=== PATIENT | male | born 1940 | race Caucasian/White ===

== ENCOUNTER 2021-10-16 20:12 | Inpatient (IN) | payer MEDICARE ==
[2021-10-16] MEDS ORDERED: Sodium Chloride 0.9% 10 ML Syringe FLUSH PRN (20:41)
[2021-10-16] MEDS ORDERED: Furosemide 20 MG/2 ML VIAL IVPUSH ONE (21:10)
[2021-10-16 21:17] LABS: CORONAVIRUS COVID-19 NAA NEGATIVE (NEGATIVE)
[2021-10-16] MEDS ORDERED: Lidocaine 2% Jelly 10 ML Urojet MUCMEM ONE (21:47)
[2021-10-16] MEDS ORDERED: Metolazone 2.5 MG Tab PO ONE (21:48)
--- NOTE | 2021-10-16 22:25 | CRLCR ---
For Patients: As a result of the Century Cures Act, medical imaging exams and procedure reports are released immediately into your electronic medical record. You may view this report before your referring provider. If you have questions, please contact your health care provider. HISTORY: Shortness of breath COMPARISON: Chest two views from 07/31/2021 FINDINGS: A portable erect AP view of the chest was obtained at 21 29 hours. There is new moderate consolidation of the lateral right lower lung associated with a new mild right pleural effusion. The findings suggest new right lower lobe pneumonia. There is new mild patchy density in the left lung base which is probably atelectasis, although additional pneumonia cannot be excluded. There is a new tiny left pleural effusion. The rest of the chest remains clear. Shallow inspiration results in crowding of lung markings and the heart now appears to be mildly enlarged, partially the result of shallow inspiration. Again seen are sternal wires from median sternotomy. Again seen is a left-sided defibrillator with leads entering the left subclavian vein and terminating in the right atrium, right ventricle, and coronary sinus. The mediastinum otherwise remains normal in appearance. The osseous structures are otherwise normal in appearance for the patient`s age. IMPRESSION: New moderate consolidation of the right lateral lower lung with new mild right pleural effusion, worrisome for new right lower lobe pneumonia. Mild patchy infiltrates in the left lateral lower lung along with tiny left pleural effusion, probably atelectasis, but cannot exclude additional pneumonia. New mild cardiomegaly, at least partially the results of shallow inspiration. Dictated by Edouard Sun MD @ 10/16/2021 10:23:13 PM (Electronically Signed)
[2021-10-16] MEDS: Spironolactone 25 MG Tab PO SCH (22:37)
[2021-10-16] MEDS: glipiZIDE 5 MG Tab.ER PO SCH ×2 (22:37→22:39)
[2021-10-16] MEDS: Hydrochlorothiazide 25 MG Tab PO SCH (22:37)
[2021-10-17] MEDS: glipiZIDE 5 MG Tab.ER PO SCH ×2 (07:34→16:18)
[2021-10-17] MEDS: Pantoprazole 40 MG Tab.CR PO SCH ×2 (07:45→16:16)
[2021-10-17] MEDS: Hydrochlorothiazide 25 MG Tab PO SCH (08:26)
[2021-10-17] MEDS: Aspirin 81 MG Tab.EC PO SCH (08:26)
[2021-10-17] MEDS: Spironolactone 25 MG Tab PO SCH (08:27)
[2021-10-17] MEDS: traMADol 50 MG Tab PO PRN ×2 (10:35→16:27)
[2021-10-17] MEDS: Atenolol 25 MG Tab PO SCH (10:35)
[2021-10-17] MEDS: Furosemide 20 MG/2 ML VIAL IVPUSH SCH ×3 (13:19→20:44)
--- NOTE | 2021-10-17 13:20 | US ---
VL Duplex Lwr Ext Art Ltd Lt CLINICAL HISTORY: Left leg pain and swelling FINDINGS: Real-time Doppler images were obtained to left lower extremity from the groin to the foot Monophasic waveforms are seen from the common femoral artery downward through the superficial femoral artery popliteal artery and the anterior and posterior tibial arteries. Monophasic reduced flow is seen in the dorsal pedal artery. 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
--- NOTE | 2021-10-17 14:21 | PCM.HP.2 ---
H&P History of Present Illness - General Date of Service: 10/17/21 Admit Problem/Dx: Admission Diagnosis/Problem Admission Diagnosis/Problem CHF, Congestive heart failure Source of Information: Patient, Family History Limitations: Reports: No Limitations - History of Present Illness Initial Comments - Free Text/Narative: He is having fluid retention gained about 40 pounds in 3 months. Also has shortness of breath and orthopnea. He has a pacemaker and recent replacement with a third wire as he is also in and out of AF Duration of Symptoms: Reports: Chronic Worsens with: Reports: Movement Associated Symptoms: Reports: Shortness of Breath, Weakness Left Ankle Pain Score (Numeric/FACES): 8 - Related Data Allergies/Adverse Reactions: Allergies Allergy/AdvReac Type Severity Reaction Status Date / Time Iodinated Contrast Media Allergy Nausea Verified 10/16/21 21:01 [Iodinated Contrast Media - IV Dye] Home Medications: Home Meds Aspirin 325 mg PO DAILY 07/02/16 [History] amLODIPine [Norvasc] 5 mg PO DAILY 07/02/16 [History] atenoloL [Atenolol] 25 mg PO DAILY 07/02/16 [History] glipiZIDE [Glucotrol XL] 10 mg PO BID 07/02/16 [History] Lactobacillus Rhamnosus GG [Culturelle] 2 cap PO BID cap 07/07/16 [Rx] Furosemide [Lasix] 40 mg PO BID 10/16/21 [History] Pantoprazole Sodium [Protonix] 40 mg PO BID 10/16/21 [History] Spironolact/Hydrochlorothiazid [Spironolactone-Hctz 25-25 Tab] 1 tab PO DAILY 10/16/21 [History] Past Medical History HEENT History: Reports: Hard of Hearing, Impaired Vision Cardiovascular History: Reports: Heart Failure, Heart Murmur, Hypertension, SC Respiratory History: Reports: Pneumonia, Recurrent Gastrointestinal History: Reports: Chronic Constipation Musculoskeletal History: Reports: Amputation Endocrine/Metabolic History: Reports: Diabetes, Type II - Infectious Disease History Infectious Disease History: Reports: Chicken Pox, Hepatitis B, Measles, Mumps - Past Surgical History Head Surgeries/Procedures: Reports: None HEENT Surgical History: Reports: Cataract Surgery Cardiovascular Surgical History: Reports: Coronary Artery Bypass, Pacer, Other (See Below) Other Cardiovascular Surgeries/Procedures: defibrilator Respiratory Surgical History: Reports: None GI Surgical History: Reports: None Endocrine Surgical History: Reports: None Neurological Surgical History: Reports: Other (See Below) Other Neurological Surgeries/Procedures: lumber 4-5 "smashed" 1987 Musculoskeletal Surgical History: Reports: Amputation Other Musculoskeletal Surgeries/Procedures:: left big toe Social & Family History - Family History HEENT: Reports: Cataract, Impaired Vision Cardiac: Reports: Hypertension, SC Respiratory: Reports: None GI: Reports: None Musculoskeletal: Reports: Arthritis Neurological: Reports: CVA Endocrine/Metabolic: Reports: Diabetes, Type I, Diabetes, type II Oncologic: Reports: Lung - Tobacco Use Tobacco Use Status *Q: Former Tobacco User Years of Tobacco use: 50 Packs/Tins Daily: 1 Used Tobacco, but Quit: Yes Month/Year Tobacco Last Used: 2008 - Caffeine Use Caffeine Use: Reports: Coffee, Soda, Tea - Recreational Drug Use Recreational Drug Use: No H&P Review of Systems - Review of Systems: Review Of Systems: See Below General: Reports: Weakness HEENT: Reports: No Symptoms Pulmonary: Reports: Shortness of Breath, Cough Cardiovascular: Reports: Palpitations, Dyspnea on Exertion, Orthopnea Gastrointestinal: Reports: Constipation Genitourinary: Reports: No Symptoms Musculoskeletal: Reports: Leg Pain Skin: Reports: Other (Pain left heel) Neurological: Reports: Difficulty Walking, Weakness Exam - Exam Exam: See Below - Vital Signs Vital Signs: Last Vital Signs Temp 97.7 F 10/17/21 11:00 Pulse 104 H 10/17/21 11:00 Resp 18 10/17/21 11:00 BP 115/72 10/17/21 11:00 Pulse Ox 100 10/17/21 11:00 Weight: 198 lb 3.129 oz - Exam General: Alert, Oriented, Cooperative, Moderate Distress HEENT: PERRLA, EACs Clear, Hearing Intact Neck: Supple Lungs: Decreased Breath Sounds, Rales Cardiovascular: Regular Rate GI/Abdominal Exam: Distended, Tender Extremities: Other (BKA right red skin left leg without a papable pulse.) Peripheral Pulses: 1+: Radial (L), Radial (R), Femoral (L), Femoral (R) Skin: Warm Neurological: Cranial Nerves Intact Neuro Extensive - Mental Status: Alert, Oriented x3 DTR: 1+: Bicep (L), Bicep (R) Psychiatric: Alert, Normal Affect - Patient Data Lab Results Last 24 hrs: Laboratory Results - last 24 hr 10/16/21 10/16/21 10/16/21 Range/Units 20:36 20:41 21:05 WBC 5.5 (4.5-11.0) K/uL RBC 5.66 (4.30-5.90) M/uL Hgb 14.9 (12.0-15.0) g/dL Hct 47.2 (40.0-54.0) % MCV 83 (80-98) fL MCH 26 L (27-31) pg MCHC 32 (32-36) % Plt Count 134 L (150-400) K/uL Neut % (Auto) 78.8 H (36-66) % Lymph % (Auto) 10.5 L (24-44) % Harris % (Auto) 10.1 H (2-6) % Eos % (Auto) 0.4 L (2-4) % Baso % (Auto) 0.2 (0-1) % Sodium (140-148) mmol/L Potassium (3.6-5.2) mmol/L Chloride (100-108) mmol/L Carbon Dioxide (21-32) mmol/L Anion Gap (5.0-14.0) mmol/L BUN (7-18) mg/dL Creatinine (0.8-1.3) mg/dL Est Cr Clr Drug Dosing mL/min Estimated GFR (MDRD) (>60) Glucose (74-106) mg/dL POC Glucose (74-106) mg/dL Calcium (8.5-10.1) mg/dL Total Bilirubin (0.2-1.0) mg/dL AST (15-37) U/L ALT (12-78) U/L Alkaline Phosphatase (46-116) U/L NT-Pro-B Natriuret Pep (5-450) pg/mL Total Protein (6.4-8.2) g/dL Albumin (3.4-5.0) g/dL Globulin (2.3-3.5) g/dL Albumin/Globulin Ratio (1.2-2.2) Urine Color Yellow (YELLOW) Urine Appearance Clear (CLEAR) Urine pH 5.0 (5.0-8.0) Ur Specific [place] 1.020 (1.008-1.030) Urine Protein Negative (NEGATIVE) mg/dL Urine Glucose (UA) Negative (NEGATIVE) mg/dL Urine Ketones Negative (NEGATIVE) mg/dL Urine Occult Blood Trace-lysed H (NEGATIVE) Urine Nitrite Negative (NEGATIVE) Urine Bilirubin Negative (NEGATIVE) Urine Urobilinogen 0.2 (0.2-1.0) EU/dL Ur Leukocyte Esterase Negative (NEGATIVE) Urine RBC 0-5 (0-5) Urine WBC 0-5 (0-5) Ur Epithelial Cells Rare Amorphous Sediment Not seen Urine Bacteria Few Urine Mucus Few Urine Other Influenza Type A RNA Negative (NEGATIVE) RSV RNA (INAAT) Negative (NEGATIVE) Influenza Type B RNA Negative (NEGATIVE) SARS-CoV-2 RNA (DIAMOND) Negative (NEGATIVE) 10/16/21 10/17/21 10/17/21 Range/Units 21:05 04:09 13:47 WBC (4.5-11.0) K/uL RBC (4.30-5.90) M/uL Hgb (12.0-15.0) g/dL Hct (40.0-54.0) % MCV (80-98) fL MCH (27-31) pg MCHC (32-36) % Plt Count (150-400) K/uL Neut % (Auto) (36-66) % Lymph % (Auto) (24-44) % Harris % (Auto) (2-6) % Eos % (Auto) (2-4) % Baso % (Auto) (0-1) % Sodium 143 145 (140-148) mmol/L Potassium 4.1 3.8 (3.6-5.2) mmol/L Chloride 107 107 (100-108) mmol/L Carbon Dioxide 23 27 (21-32) mmol/L Anion Gap 12.7 10.8 (5.0-14.0) mmol/L BUN 18 17 (7-18) mg/dL Creatinine 1.4 H 1.4 H (0.8-1.3) mg/dL Est Cr Clr Drug Dosing 43.45 43.45 mL/min Estimated GFR (MDRD) 49 L 49 L (>60) Glucose 136 H 110 H (74-106) mg/dL POC Glucose 97 (74-106) mg/dL Calcium 8.9 8.7 (8.5-10.1) mg/dL Total Bilirubin 1.1 H D (0.2-1.0) mg/dL AST 24 (15-37) U/L ALT 21 (12-78) U/L Alkaline Phosphatase 85 (46-116) U/L NT-Pro-B Natriuret Pep 06313 H (5-450) pg/mL Total Protein 6.4 (6.4-8.2) g/dL Albumin 3.4 (3.4-5.0) g/dL Globulin 3.0 (2.3-3.5) g/dL Albumin/Globulin Ratio 1.1 L (1.2-2.2) Urine Color (YELLOW) Urine Appearance (CLEAR) Urine pH (5.0-8.0) Ur Specific [place] (1.008-1.030) Urine Protein (NEGATIVE) mg/dL Urine Glucose (UA) (NEGATIVE) mg/dL Urine Ketones (NEGATIVE) mg/dL Urine Occult Blood (NEGATIVE) Urine Nitrite (NEGATIVE) Urine Bilirubin (NEGATIVE) Urine Urobilinogen (0.2-1.0) EU/dL Ur Leukocyte Esterase (NEGATIVE) Urine RBC (0-5) Urine WBC (0-5) Ur Epithelial Cells Amorphous Sediment Urine Bacteria Urine Mucus Urine Other Influenza Type A RNA (NEGATIVE) RSV RNA (INAAT) (NEGATIVE) Influenza Type B RNA (NEGATIVE) SARS-CoV-2 RNA (DIAMOND) (NEGATIVE) Result Diagrams: 10/16/21 21:05 10/17/21 04:09 Sepsis Event Note - Evaluation Sepsis Screening Result: No Definite Risk - Focused Exam Vital Signs: Vital Signs Temp Pulse Pulse Resp BP BP Pulse Ox 10/17/21 11:00 97.7 F 104 H 18 115/72 100 10/17/21 10:35 106 H 109/65 10/17/21 07:34 96.9 F 98 18 119/65 97 10/17/21 03:00 93 18 104/77 98 Problem List Initiated/Reviewed/Updated: Yes Orders Last 24hrs: Active Orders 24 hr Category Date Time Status Patient Status [ADT] Routine ADT 10/16/21 20:21 Active Communication Order [RC] ASDIRECTED Care 10/16/21 23:49 Active Pena Catheter Insertion [Insert Urinary Catheter] [OM. Care 10/16/21 21:15 Ordered PC] Q24H POC Glucose [Blood Glucose Check, Bedside] [RC] Care 10/17/21 10:20 Active WITHMEALSANDBED Telemetry Monitoring [Cardiac Monitoring] [RC] .As Care 10/16/21 22:38 Active Directed Urinary Catheter Assessment [RC] ASDIRECTED Care 10/16/21 21:15 Active Consistent Carbohydrate Diet [DIET] Diet 10/17/21 Breakfast Active CULTURE RESPIRATORY + SMEAR [RM] Routine Lab 10/16/21 23:49 Ordered GLUCOSE POC LAB TO COLLECT JPM [POC] QIDACANDBED Lab 10/17/21 16:30 Ordered GLUCOSE POC LAB TO COLLECT JPM [POC] QIDACANDBED Lab 10/17/21 21:00 Ordered GLUCOSE POC LAB TO COLLECT JPM [POC] QIDACANDBED Lab 10/18/21 07:30 Ordered GLUCOSE POC LAB TO COLLECT JPM [POC] QIDACANDBED Lab 10/18/21 11:30 Ordered GLUCOSE POC LAB TO COLLECT JPM [POC] QIDACANDBED Lab 10/18/21 16:30 Ordered GLUCOSE POC LAB TO COLLECT JPM [POC] QIDACANDBED Lab 10/18/21 21:00 Ordered GLUCOSE POC LAB TO COLLECT JPM [POC] QIDACANDBED Lab 10/19/21 07:30 Ordered GLUCOSE POC LAB TO COLLECT JPM [POC] QIDACANDBED Lab 10/19/21 11:30 Ordered GLUCOSE POC LAB TO COLLECT JPM [POC] QIDACANDBED Lab 10/19/21 16:30 Ordered GLUCOSE POC LAB TO COLLECT JPM [POC] QIDACANDBED Lab 10/19/21 21:00 Ordered GLUCOSE POC LAB TO COLLECT JPM [POC] QIDACANDBED Lab 10/20/21 07:30 Ordered GLUCOSE POC LAB TO COLLECT JPM [POC] QIDACANDBED Lab 10/20/21 11:30 Ordered GLUCOSE POC LAB TO COLLECT JPM [POC] QIDACANDBED Lab 10/20/21 16:30 Ordered GLUCOSE POC LAB TO COLLECT JPM [POC] QIDACANDBED Lab 10/20/21 21:00 Ordered GLUCOSE POC LAB TO COLLECT JPM [POC] QIDACANDBED Lab 10/21/21 07:30 Ordered GLUCOSE POC LAB TO COLLECT JPM [POC] QIDACANDBED Lab 10/21/21 11:30 Ordered Aspirin [Halfprin] Med 10/17/21 09:00 Active 81 mg PO DAILY Furosemide [Lasix] Med 10/17/21 12:00 Active 20 mg IVPUSH Q6H Pantoprazole [ProTONIX] Med 10/17/21 07:30 Active 40 mg PO BIDAC Sodium Chloride 0.9% [Saline Flush] Med 10/16/21 20:41 Active 10 ml FLUSH ASDIRECTED PRN Spironolactone [Aldactone] Med 10/16/21 22:15 Active 25 mg PO DAILY atenoloL [Tenormin] Med 10/17/21 10:30 Active 25 mg PO DAILY diphenhydrAMINE [Benadryl] Med 10/17/21 20:00 Once 25 mg IVPUSH ONETIME ONE diphenhydrAMINE [Benadryl] Med 10/18/21 08:00 Once 25 mg IVPUSH ONETIME ONE glipiZIDE [Glucotrol XL] Med 10/16/21 22:00 Active 10 mg PO BIDMEALS hydroCHLOROthiazide Med 10/16/21 22:15 Active 25 mg PO DAILY methylPREDNISolone Sod Succ [Solu-MEDROL] Med 10/17/21 20:00 Once 80 mg IVPUSH ONETIME ONE methylPREDNISolone Sod Succ [Solu-MEDROL] Med 10/18/21 08:00 Once 80 mg IVPUSH ONETIME ONE traMADol [Ultram] Med 10/17/21 10:21 Active 50 mg PO Q6H PRN Saline Lock Insert [OM.PC] Routine Oth 10/16/21 20:41 Ordered EKG 12 Lead [EK] Routine Ther 10/16/21 20:41 Ordered Medication Orders Aspirin (Aspirin 81 Mg Tab.Ec) 81 mg PO DAILY [facility] Last Admin: 10/17/21 08:26 Dose: 81 mg Documented by: LIANG Atenolol (Atenolol 25 Mg Tab) 25 mg PO DAILY [facility] Last Admin: 10/17/21 10:35 Dose: 25 mg Documented by: LIANG Diphenhydramine HCl (Diphenhydramine 50 Mg/Ml Sdv) 25 mg IVPUSH ONETIME ONE Stop: 10/17/21 20:01 Diphenhydramine HCl (Diphenhydramine 50 Mg/Ml Sdv) 25 mg IVPUSH ONETIME ONE Stop: 10/18/21 08:01 Furosemide (Furosemide 20 Mg/2 Ml Vial) 20 mg IVPUSH Q6H [facility] Last Admin: 10/17/21 13:19 Dose: 20 mg Documented by: LIANG Glipizide (Glipizide 5 Mg Tab.Er) 10 mg PO BIDMEALS [facility] Last Admin: 10/17/21 07:34 Dose: 10 mg Documented by: Admin: 10/16/21 22:39 Dose: Not Given Documented by: TRACIE Hydrochlorothiazide (Hydrochlorothiazide 25 Mg Tab) 25 mg PO DAILY [facility] Last Admin: 10/17/21 08:26 Dose: 25 mg Documented by: Admin: 10/16/21 22:37 Dose: 25 mg Documented by: TRACIE Methylprednisolone Sodium Succinate (Methylprednisolone Sodium Succinate 40 Mg/1 Ml Sdv) 80 mg IVPUSH ONETIME ONE Stop: 10/17/21 20:01 Methylprednisolone Sodium Succinate (Methylprednisolone Sodium Succinate 40 Mg/1 Ml Sdv) 80 mg IVPUSH ONETIME ONE Stop: 10/18/21 08:01 Pantoprazole Sodium (Pantoprazole 40 Mg Tab.Cr) 40 mg PO BIDAC [facility] Last Admin: 10/17/21 07:45 Dose: 40 mg Documented by: LIANG Sodium Chloride (Sodium Chloride 0.9% 10 Ml Syringe) 10 ml FLUSH ASDIRECTED PRN PRN Reason: Keep Vein Open Spironolactone (Spironolactone 25 Mg Tab) 25 mg PO DAILY [facility] Last Admin: 10/17/21 08:27 Dose: 25 mg Documented by: Admin: 10/16/21 22:37 Dose: 25 mg Documented by: TRACIE Tramadol HCl (Tramadol 50 Mg Tab) 50 mg PO Q6H PRN PRN Reason: Pain Last Admin: 10/17/21 10:35 Dose: 50 mg Documented by: LIANG Assessment/Plan Comment:: Assessment/Plan: #1. CHF with fluid retention. Have started of IV Lasix and Zaroxolyn and HCTZ and Aldactazide. Will have the pacemaker checked in the morning. Will schedule a echocardiogram when possible. #2. DMII. Will adjust and treat blood sugars #3. Arthrosclerosis arteries diffuse. Will check arterial flow in the left leg. #4. ASHD: Chronic #5. BKA right leg.] #6. History of HTN: #7. History of HLD - Mortality Measure Prognosis:: Poor
--- NOTE | 2021-10-17 14:38 | PCM.PN ---
- General Info Date of Service: 10/17/21 Functional Status: Reports: Pain Controlled - Review of Systems General: Reports: Weakness Pulmonary: Reports: Shortness of Breath Cardiovascular: Reports: No Symptoms Gastrointestinal: Reports: Constipation Genitourinary: Reports: No Symptoms Skin: Reports: Other (pain left heel) Psychiatric: Reports: No Symptoms - Patient Data Vitals - Most Recent: Last Vital Signs Temp 97.7 F 10/17/21 11:00 Pulse 104 H 10/17/21 11:00 Resp 18 10/17/21 11:00 BP 115/72 10/17/21 11:00 Pulse Ox 100 10/17/21 11:00 Weight - Most Recent: 198 lb 3.129 oz I&O - Last 24 Hours: Intake & Output 10/16/21 10/17/21 10/17/21 22:59 06:59 14:59 Intake Total 540 Output Total 1550 575 Balance -1550 -35 Lab Results Last 24 Hours: Laboratory Results - last 24 hr 10/16/21 10/16/21 10/16/21 Range/Units 20:36 20:41 21:05 WBC 5.5 (4.5-11.0) K/uL RBC 5.66 (4.30-5.90) M/uL Hgb 14.9 (12.0-15.0) g/dL Hct 47.2 (40.0-54.0) % MCV 83 (80-98) fL MCH 26 L (27-31) pg MCHC 32 (32-36) % Plt Count 134 L (150-400) K/uL Neut % (Auto) 78.8 H (36-66) % Lymph % (Auto) 10.5 L (24-44) % [place] % (Auto) 10.1 H (2-6) % Eos % (Auto) 0.4 L (2-4) % Baso % (Auto) 0.2 (0-1) % Sodium (140-148) mmol/L Potassium (3.6-5.2) mmol/L Chloride (100-108) mmol/L Carbon Dioxide (21-32) mmol/L Anion Gap (5.0-14.0) mmol/L BUN (7-18) mg/dL Creatinine (0.8-1.3) mg/dL Est Cr Clr Drug Dosing mL/min Estimated GFR (MDRD) (>60) Glucose (74-106) mg/dL POC Glucose (74-106) mg/dL Calcium (8.5-10.1) mg/dL Total Bilirubin (0.2-1.0) mg/dL AST (15-37) U/L ALT (12-78) U/L Alkaline Phosphatase (46-116) U/L NT-Pro-B Natriuret Pep (5-450) pg/mL Total Protein (6.4-8.2) g/dL Albumin (3.4-5.0) g/dL Globulin (2.3-3.5) g/dL Albumin/Globulin Ratio (1.2-2.2) Urine Color Yellow (YELLOW) Urine Appearance Clear (CLEAR) Urine pH 5.0 (5.0-8.0) Ur Specific [place] 1.020 (1.008-1.030) Urine Protein Negative (NEGATIVE) mg/dL Urine Glucose (UA) Negative (NEGATIVE) mg/dL Urine Ketones Negative (NEGATIVE) mg/dL Urine Occult Blood Trace-lysed H (NEGATIVE) Urine Nitrite Negative (NEGATIVE) Urine Bilirubin Negative (NEGATIVE) Urine Urobilinogen 0.2 (0.2-1.0) EU/dL Ur Leukocyte Esterase Negative (NEGATIVE) Urine RBC 0-5 (0-5) Urine WBC 0-5 (0-5) Ur Epithelial Cells Rare Amorphous Sediment Not seen Urine Bacteria Few Urine Mucus Few Urine Other Influenza Type A RNA Negative (NEGATIVE) RSV RNA (INAAT) Negative (NEGATIVE) Influenza Type B RNA Negative (NEGATIVE) SARS-CoV-2 RNA (DIAMOND) Negative (NEGATIVE) 10/16/21 10/17/21 10/17/21 Range/Units 21:05 04:09 13:47 WBC (4.5-11.0) K/uL RBC (4.30-5.90) M/uL Hgb (12.0-15.0) g/dL Hct (40.0-54.0) % MCV (80-98) fL MCH (27-31) pg MCHC (32-36) % Plt Count (150-400) K/uL Neut % (Auto) (36-66) % Lymph % (Auto) (24-44) % [place] % (Auto) (2-6) % Eos % (Auto) (2-4) % Baso % (Auto) (0-1) % Sodium 143 145 (140-148) mmol/L Potassium 4.1 3.8 (3.6-5.2) mmol/L Chloride 107 107 (100-108) mmol/L Carbon Dioxide 23 27 (21-32) mmol/L Anion Gap 12.7 10.8 (5.0-14.0) mmol/L BUN 18 17 (7-18) mg/dL Creatinine 1.4 H 1.4 H (0.8-1.3) mg/dL Est Cr Clr Drug Dosing 43.45 43.45 mL/min Estimated GFR (MDRD) 49 L 49 L (>60) Glucose 136 H 110 H (74-106) mg/dL POC Glucose 97 (74-106) mg/dL Calcium 8.9 8.7 (8.5-10.1) mg/dL Total Bilirubin 1.1 H D (0.2-1.0) mg/dL AST 24 (15-37) U/L ALT 21 (12-78) U/L Alkaline Phosphatase 85 (46-116) U/L NT-Pro-B Natriuret Pep 33715 H (5-450) pg/mL Total Protein 6.4 (6.4-8.2) g/dL Albumin 3.4 (3.4-5.0) g/dL Globulin 3.0 (2.3-3.5) g/dL Albumin/Globulin Ratio 1.1 L (1.2-2.2) Urine Color (YELLOW) Urine Appearance (CLEAR) Urine pH (5.0-8.0) Ur Specific [place] (1.008-1.030) Urine Protein (NEGATIVE) mg/dL Urine Glucose (UA) (NEGATIVE) mg/dL Urine Ketones (NEGATIVE) mg/dL Urine Occult Blood (NEGATIVE) Urine Nitrite (NEGATIVE) Urine Bilirubin (NEGATIVE) Urine Urobilinogen (0.2-1.0) EU/dL Ur Leukocyte Esterase (NEGATIVE) Urine RBC (0-5) Urine WBC (0-5) Ur Epithelial Cells Amorphous Sediment Urine Bacteria Urine Mucus Urine Other Influenza Type A RNA (NEGATIVE) RSV RNA (INAAT) (NEGATIVE) Influenza Type B RNA (NEGATIVE) SARS-CoV-2 RNA (DIAMOND) (NEGATIVE) Med Orders - Current: Current Medications Aspirin (Aspirin 81 Mg Tab.Ec) 81 mg PO DAILY [facility] Last Admin: 10/17/21 08:26 Dose: 81 mg Documented by: Atenolol (Atenolol 25 Mg Tab) 25 mg PO DAILY [facility] Last Admin: 10/17/21 10:35 Dose: 25 mg Documented by: Diphenhydramine HCl (Diphenhydramine 50 Mg/Ml Sdv) 25 mg IVPUSH ONETIME ONE Stop: 10/17/21 20:01 Diphenhydramine HCl (Diphenhydramine 50 Mg/Ml Sdv) 25 mg IVPUSH ONETIME ONE Stop: 10/18/21 08:01 Furosemide (Furosemide 20 Mg/2 Ml Vial) 20 mg IVPUSH Q6H [facility] Last Admin: 10/17/21 13:19 Dose: 20 mg Documented by: Glipizide (Glipizide 5 Mg Tab.Er) 10 mg PO BIDMEALS [facility] Last Admin: 10/17/21 07:34 Dose: 10 mg Documented by: Hydrochlorothiazide (Hydrochlorothiazide 25 Mg Tab) 25 mg PO DAILY [facility] Last Admin: 10/17/21 08:26 Dose: 25 mg Documented by: Methylprednisolone Sodium Succinate (Methylprednisolone Sodium Succinate 40 Mg/1 Ml Sdv) 80 mg IVPUSH ONETIME ONE Stop: 10/17/21 20:01 Methylprednisolone Sodium Succinate (Methylprednisolone Sodium Succinate 40 Mg/1 Ml Sdv) 80 mg IVPUSH ONETIME ONE Stop: 10/18/21 08:01 Pantoprazole Sodium (Pantoprazole 40 Mg Tab.Cr) 40 mg PO BIDAC [facility] Last Admin: 10/17/21 07:45 Dose: 40 mg Documented by: Sodium Chloride (Sodium Chloride 0.9% 10 Ml Syringe) 10 ml FLUSH ASDIRECTED PRN PRN Reason: Keep Vein Open Spironolactone (Spironolactone 25 Mg Tab) 25 mg PO DAILY [facility] Last Admin: 10/17/21 08:27 Dose: 25 mg Documented by: Tramadol HCl (Tramadol 50 Mg Tab) 50 mg PO Q6H PRN PRN Reason: Pain Last Admin: 10/17/21 10:35 Dose: 50 mg Documented by: Discontinued Medications Furosemide (Furosemide 20 Mg/2 Ml Vial) 20 mg IVPUSH ONETIME ONE Stop: 10/16/21 21:11 Last Admin: 12/23/21 22:01 Dose: 20 mg Documented by: Lidocaine HCl (Lidocaine 2% Jelly 10 Ml Urojet) 10 ml MUCMEM ONETIME ONE Stop: 10/16/21 21:48 Last Admin: 10/16/21 22:01 Dose: 10 ml Documented by: Metolazone (Metolazone 2.5 Mg Tab) 5 mg PO ONETIME ONE Stop: 10/16/21 21:49 Last Admin: 10/16/21 22:37 Dose: 5 mg Documented by: - Exam Urinary Catheter Total Time: 0Days 0Hours General: Alert, Oriented HEENT: Pupils Equal, Pupils Reactive, EOMI, Mucous Membr. Moist/[place] Neck: Supple Lungs: Normal Respiratory Effort, Crackles, Rales Cardiovascular: Regular Rate, Regular Rhythm GI/Abdominal Exam: Distended Back Exam: Normal Inspection, Full Range of Motion Extremities: Other (BKA right leg and decreased pulse left leg.) Skin: Warm Psy/Mental Status: Alert, Normal Affect, Normal Mood - Patient Data Lab Results Last 24 hrs: Laboratory Results - last 24 hr 10/16/21 10/16/21 10/16/21 Range/Units 20:36 20:41 21:05 WBC 5.5 (4.5-11.0) K/uL RBC 5.66 (4.30-5.90) M/uL Hgb 14.9 (12.0-15.0) g/dL Hct 47.2 (40.0-54.0) % MCV 83 (80-98) fL MCH 26 L (27-31) pg MCHC 32 (32-36) % Plt Count 134 L (150-400) K/uL Neut % (Auto) 78.8 H (36-66) % Lymph % (Auto) 10.5 L (24-44) % [place] % (Auto) 10.1 H (2-6) % Eos % (Auto) 0.4 L (2-4) % Baso % (Auto) 0.2 (0-1) % Sodium (140-148) mmol/L Potassium (3.6-5.2) mmol/L Chloride (100-108) mmol/L Carbon Dioxide (21-32) mmol/L Anion Gap (5.0-14.0) mmol/L BUN (7-18) mg/dL Creatinine (0.8-1.3) mg/dL Est Cr Clr Drug Dosing mL/min Estimated GFR (MDRD) (>60) Glucose (74-106) mg/dL POC Glucose (74-106) mg/dL Calcium (8.5-10.1) mg/dL Total Bilirubin (0.2-1.0) mg/dL AST (15-37) U/L ALT (12-78) U/L Alkaline Phosphatase (46-116) U/L NT-Pro-B Natriuret Pep (5-450) pg/mL Total Protein (6.4-8.2) g/dL Albumin (3.4-5.0) g/dL Globulin (2.3-3.5) g/dL Albumin/Globulin Ratio (1.2-2.2) Urine Color Yellow (YELLOW) Urine Appearance Clear (CLEAR) Urine pH 5.0 (5.0-8.0) Ur Specific [place] 1.020 (1.008-1.030) Urine Protein Negative (NEGATIVE) mg/dL Urine Glucose (UA) Negative (NEGATIVE) mg/dL Urine Ketones Negative (NEGATIVE) mg/dL Urine Occult Blood Trace-lysed H (NEGATIVE) Urine Nitrite Negative (NEGATIVE) Urine Bilirubin Negative (NEGATIVE) Urine Urobilinogen 0.2 (0.2-1.0) EU/dL Ur Leukocyte Esterase Negative (NEGATIVE) Urine RBC 0-5 (0-5) Urine WBC 0-5 (0-5) Ur Epithelial Cells Rare Amorphous Sediment Not seen Urine Bacteria Few Urine Mucus Few Urine Other Influenza Type A RNA Negative (NEGATIVE) RSV RNA (INAAT) Negative (NEGATIVE) Influenza Type B RNA Negative (NEGATIVE) SARS-CoV-2 RNA ([place]AM[place]) Negative (NEGATIVE) 10/16/21 10/17/21 10/17/21 Range/Units 21:05 04:09 13:47 WBC (4.5-11.0) K/uL RBC (4.30-5.90) M/uL Hgb (12.0-15.0) g/dL Hct (40.0-54.0) % MCV (80-98) fL MCH (27-31) pg MCHC (32-36) % Plt Count (150-400) K/uL Neut % (Auto) (36-66) % Lymph % (Auto) (24-44) % [place] % (Auto) (2-6) % Eos % (Auto) (2-4) % Baso % (Auto) (0-1) % Sodium 143 145 (140-148) mmol/L Potassium 4.1 3.8 (3.6-5.2) mmol/L Chloride 107 107 (100-108) mmol/L Carbon Dioxide 23 27 (21-32) mmol/L Anion Gap 12.7 10.8 (5.0-14.0) mmol/L BUN 18 17 (7-18) mg/dL Creatinine 1.4 H 1.4 H (0.8-1.3) mg/dL Est Cr Clr Drug Dosing 43.45 43.45 mL/min Estimated GFR (MDRD) 49 L 49 L (>60) Glucose 136 H 110 H (74-106) mg/dL POC Glucose 97 (74-106) mg/dL Calcium 8.9 8.7 (8.5-10.1) mg/dL Total Bilirubin 1.1 H D (0.2-1.0) mg/dL AST 24 (15-37) U/L ALT 21 (12-78) U/L Alkaline Phosphatase 85 (46-116) U/L NT-Pro-B Natriuret Pep 60925 H (5-450) pg/mL Total Protein 6.4 (6.4-8.2) g/dL Albumin 3.4 (3.4-5.0) g/dL Globulin 3.0 (2.3-3.5) g/dL Albumin/Globulin Ratio 1.1 L (1.2-2.2) Urine Color (YELLOW) Urine Appearance (CLEAR) Urine pH (5.0-8.0) Ur Specific [place] (1.008-1.030) Urine Protein (NEGATIVE) mg/dL Urine Glucose (UA) (NEGATIVE) mg/dL Urine Ketones (NEGATIVE) mg/dL Urine Occult Blood (NEGATIVE) Urine Nitrite (NEGATIVE) Urine Bilirubin (NEGATIVE) Urine Urobilinogen (0.2-1.0) EU/dL Ur Leukocyte Esterase (NEGATIVE) Urine RBC (0-5) Urine WBC (0-5) Ur Epithelial Cells Amorphous Sediment Urine Bacteria Urine Mucus Urine Other Influenza Type A RNA (NEGATIVE) RSV RNA (INAAT) (NEGATIVE) Influenza Type B RNA (NEGATIVE) SARS-CoV-2 RNA ([place]) (NEGATIVE) Result Diagrams: 12/23/21 21:05 10/17/21 04:09 Sepsis Event Note - Evaluation Sepsis Screening Result: No Definite Risk - Focused Exam Vital Signs: Vital Signs Temp Pulse Pulse Resp BP BP Pulse Ox 10/17/21 11:00 97.7 F 104 H 18 115/72 100 10/17/21 10:35 106 H 109/65 10/17/21 07:34 96.9 F 98 18 119/65 97 10/17/21 03:00 93 18 104/77 98 - Problem List Review Problem List Initiated/Reviewed/Updated: Yes - My Orders Last 24 Hours: My Active Orders 10/16/21 20:21 Patient Status [ADT] Routine 10/16/21 20:41 Sodium Chloride 0.9% [Saline Flush] 10 ml FLUSH ASDIRECTED PRN Saline Lock Insert [OM.PC] Routine EKG 12 Lead [EK] Routine 10/16/21 21:15 Pena Catheter Insertion [Insert Urinary Catheter] [OM.PC] Q24H Urinary Catheter Assessment [RC] ASDIRECTED 10/16/21 22:00 glipiZIDE [Glucotrol XL] 10 mg PO BIDMEALS 10/16/21 22:15 Spironolactone [Aldactone] 25 mg PO DAILY hydroCHLOROthiazide 25 mg PO DAILY 10/16/21 22:38 Telemetry Monitoring [Cardiac Monitoring] [RC] .As Directed 10/16/21 23:49 Communication Order [RC] ASDIRECTED CULTURE RESPIRATORY + SMEAR [RM] Routine 10/17/21 07:30 Pantoprazole [ProTONIX] 40 mg PO BIDAC 10/17/21 Breakfast Consistent Carbohydrate Diet [DIET] 10/17/21 09:00 Aspirin [Halfprin] 81 mg PO DAILY 10/17/21 10:20 POC Glucose [Blood Glucose Check, Bedside] [RC] WITHMEALSANDBED 10/17/21 10:21 traMADol [Ultram] 50 mg PO Q6H PRN 10/17/21 10:30 atenoloL [Tenormin] 25 mg PO DAILY 10/17/21 12:00 Furosemide [Lasix] 20 mg IVPUSH Q6H 10/17/21 16:30 GLUCOSE POC LAB TO COLLECT JPM [POC] QIDACANDBED 10/17/21 20:00 diphenhydrAMINE [Benadryl] 25 mg IVPUSH ONETIME ONE methylPREDNISolone Sod Succ [Solu-MEDROL] 80 mg IVPUSH ONETIME ONE 10/17/21 21:00 GLUCOSE POC LAB TO COLLECT JPM [POC] QIDACANDBED 10/18/21 07:30 GLUCOSE POC LAB TO COLLECT JPM [POC] QIDACANDBED 10/18/21 08:00 diphenhydrAMINE [Benadryl] 25 mg IVPUSH ONETIME ONE methylPREDNISolone Sod Succ [Solu-MEDROL] 80 mg IVPUSH ONETIME ONE 10/18/21 11:30 GLUCOSE POC LAB TO COLLECT JPM [POC] QIDACANDBED 10/18/21 16:30 GLUCOSE POC LAB TO COLLECT JPM [POC] QIDACANDBED 10/18/21 21:00 GLUCOSE POC LAB TO COLLECT JPM [POC] QIDACANDBED 10/19/21 07:30 GLUCOSE POC LAB TO COLLECT JPM [POC] QIDACANDBED 10/19/21 11:30 GLUCOSE POC LAB TO COLLECT JPM [POC] QIDACANDBED 10/19/21 16:30 GLUCOSE POC LAB TO COLLECT JPM [POC] QIDACANDBED 10/19/21 21:00 GLUCOSE POC LAB TO COLLECT JPM [POC] QIDACANDBED 10/20/21 07:30 GLUCOSE POC LAB TO COLLECT JPM [POC] QIDACANDBED 10/20/21 11:30 GLUCOSE POC LAB TO COLLECT JPM [POC] QIDACANDBED 10/20/21 16:30 GLUCOSE POC LAB TO COLLECT JPM [POC] QIDACANDBED 10/20/21 21:00 GLUCOSE POC LAB TO COLLECT JPM [POC] QIDACANDBED 10/21/21 07:30 GLUCOSE POC LAB TO COLLECT JPM [POC] QIDACANDBED 10/21/21 11:30 GLUCOSE POC LAB TO COLLECT JPM [POC] QIDACANDBED - Plan Plan:: Assessment/Plan: #1. CHF with fluid retention. will continue with IV Lasix and Zaroxolyn and HCTZ and Aldactazide. Will schedule a echocardiogram when possible. He put out 1.5 liters almost immediately last night. Pacemaker was adjusted today. #2. DMII. Will adjust and treat blood sugars #3. Arthrosclerosis arteries diffuse. Will check arterial flow in the left leg. #4. ASHD: Chronic #5. BKA right leg.] #6. History of HTN: #7. History of HLD
[2021-10-17] MEDS ORDERED: Acetaminophen/Codeine 300-30 MG Tab PO PRN (17:55)
[2021-10-17] MEDS ORDERED: guaiFENesin/Dextromethorphan 100-10 MG/5 ML Soln 10 ML Cup PO PRN (17:57)
[2021-10-17] MEDS ORDERED: methylPREDNISolone Sodium Succinate 40 MG/1 ML SDV IVPUSH ONE (20:00)
[2021-10-17] MEDS ORDERED: diphenhydrAMINE 50 MG/ML SDV IVPUSH ONE (20:00)
[2021-10-17] MEDS ORDERED: cefTRIAXone 2 GM in Sodium Chloride 0.9% 50 ML IV ONE ×2 (20:43→22:00)
[2021-10-17] MEDS ORDERED: cefTRIAXone 1 GM AdvVial IV ONE (20:58)
[2021-10-18] MEDS: Furosemide 20 MG/2 ML VIAL IVPUSH SCH (00:02)
[2021-10-18] MEDS ORDERED: diphenhydrAMINE 50 MG/ML SDV IVPUSH ONE (08:00)
[2021-10-18] MEDS ORDERED: methylPREDNISolone Sodium Succinate 40 MG/1 ML SDV IVPUSH ONE (08:00)
--- NOTE | 2021-10-18 08:43 | CRLCT ---
For Patients: As a result of the 21st Century Cures Act, medical imaging exams and procedure reports are released immediately into your electronic medical record. You may view this report before your referring provider. If you have questions, please contact your health care provider. INDICATION: elevated kidney function tests HISTORY: Elevated kidney function tests. COMPARISON: CT of the abdomen and pelvis, 08/25/2018. TECHNIQUE: CT of the abdomen. No intravenous contrast. Coronal/sagittal reconstruction images. FINDINGS: Lung bases: Partially visualized transvenous pacemaker device. Median sternotomy changes. Bilateral pleural effusions, small may left, moderate on the right. No pericardial effusion. Lung bases demonstrate atelectasis or consolidation adjacent to the right pleural effusion. There is significant motion artifact which limits image quality. No basilar pneumothorax. Abdomen/pelvis: No solid hepatic mass. Cholelithiasis without associated inflammatory changes. Spleen size is normal. There is bilateral perinephric fat stranding. There is no hydronephrosis or perinephric fluid collection. Mixed attenuation lesion containing macroscopic fat in the right latha renal space, stable from previous, potentially an AML. This measures 2.3 cm in image 89 of series 2. No pancreatic mass or glandular atrophy. The included segments of the small bowel and colon are normal in caliber. There is no perienteric edema or mural thickening. Degenerative calcific plaque in a normal caliber abdominal aorta. Subcutaneous edema. This suggests 3rd spacing of fluid. Trace amount of abdominal ascites. No loculated or drainable fluid collection. The bone windows demonstrate no suspicious bone lesions. There is degenerative disc disease at the endplates of the thoracic spine. On sagittal reconstruction images, vertebral body heights are maintained. IMPRESSION: 1. Kidneys are negative for hydronephrosis or perinephric fluid collection. 2. Fat containing mass in the right perirenal space is unchanged from previous. 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 3. Subcutaneous edema, bilateral pleural effusions, right larger than left, which suggests 3rd spacing of fluid. 4. Cholelithiasis without associated inflammatory changes. No dilation of intrahepatic biliary radicles. Dictated by Milton Jackson MD @ 10/18/2021 8:41:29 AM Please note that all CT scans at this facility use dose modulation, iterative reconstruction, and/or weight-based dosing when appropriate to reduce radiation dose to as low as reasonably achievable. Dictated by: Milton Jackson MD @ 10/18/2021 08:41:36 (Electronically Signed)
[2021-10-18] MEDS: Hydrochlorothiazide 25 MG Tab PO SCH (11:11)
[2021-10-18] MEDS: Atenolol 25 MG Tab PO SCH ×2 (11:11→12:27)
[2021-10-18] MEDS: Spironolactone 25 MG Tab PO SCH (11:11)
[2021-10-18] MEDS: glipiZIDE 5 MG Tab.ER PO SCH ×3 (11:11→16:55)
[2021-10-18] MEDS: Pantoprazole 40 MG Tab.CR PO SCH ×2 (11:11→16:02)
[2021-10-18] MEDS: Aspirin 81 MG Tab.EC PO SCH (11:11)
--- NOTE | 2021-10-18 13:02 | PCM.PN ---
- General Info Date of Service: 10/18/21 - Review of Systems General: Reports: Weakness HEENT: Reports: No Symptoms Pulmonary: Reports: Shortness of Breath, Cough Cardiovascular: Reports: Dyspnea on Exertion Gastrointestinal: Reports: No Symptoms Genitourinary: Reports: No Symptoms Skin: Reports: No Symptoms Neurological: Reports: No Symptoms Psychiatric: Reports: No Symptoms - Patient Data Vitals - Most Recent: Last Vital Signs Temp 97.0 F 10/18/21 10:51 Pulse 100 10/18/21 12:27 Resp 16 10/18/21 10:51 BP 104/58 L 10/18/21 12:27 Pulse Ox 97 10/18/21 10:51 Weight - Most Recent: 193 lb 1.999 oz I&O - Last 24 Hours: Intake & Output 10/17/21 10/18/21 10/18/21 22:59 06:59 14:59 Intake Total 590 Output Total 800 275 Balance -210 -275 Lab Results Last 24 Hours: Laboratory Results - last 24 hr 10/17/21 10/17/21 10/17/21 Range/Units 13:47 16:17 20:55 WBC (4.5-11.0) K/uL RBC (4.30-5.90) M/uL Hgb (12.0-15.0) g/dL Hct (40.0-54.0) % MCV (80-98) fL MCH (27-31) pg MCHC (32-36) % Plt Count (150-400) K/uL Neut % (Auto) (36-66) % Lymph % (Auto) (24-44) % Kerr % (Auto) (2-6) % Eos % (Auto) (2-4) % Baso % (Auto) (0-1) % Sodium (140-148) mmol/L Potassium (3.6-5.2) mmol/L Chloride (100-108) mmol/L Carbon Dioxide (21-32) mmol/L Anion Gap (5.0-14.0) mmol/L BUN (7-18) mg/dL Creatinine (0.8-1.3) mg/dL Est Cr Clr Drug Dosing mL/min Estimated GFR (MDRD) (>60) Glucose (74-106) mg/dL POC Glucose 97 81 211 H (74-106) mg/dL Calcium (8.5-10.1) mg/dL 10/18/21 10/18/21 10/18/21 Range/Units 04:10 04:10 07:26 WBC 6.0 (4.5-11.0) K/uL RBC 5.52 (4.30-5.90) M/uL Hgb 14.4 (12.0-15.0) g/dL Hct 46.8 (40.0-54.0) % MCV 85 (80-98) fL MCH 26 L (27-31) pg MCHC 31 L (32-36) % Plt Count 113 L (150-400) K/uL Neut % (Auto) 91.7 H (36-66) % Lymph % (Auto) 6.5 L (24-44) % Kerr % (Auto) 1.8 L (2-6) % Eos % (Auto) 0.0 L (2-4) % Baso % (Auto) 0.0 (0-1) % Sodium 142 (140-148) mmol/L Potassium 4.0 (3.6-5.2) mmol/L Chloride 103 (100-108) mmol/L Carbon Dioxide 30 (21-32) mmol/L Anion Gap 9.5 (5.0-14.0) mmol/L BUN 20 H (7-18) mg/dL Creatinine 1.8 H (0.8-1.3) mg/dL Est Cr Clr Drug Dosing 33.80 mL/min Estimated GFR (MDRD) 36 L (>60) Glucose 174 H (74-106) mg/dL POC Glucose 159 H (74-106) mg/dL Calcium 9.0 (8.5-10.1) mg/dL 10/18/21 Range/Units 11:16 WBC (4.5-11.0) K/uL RBC (4.30-5.90) M/uL Hgb (12.0-15.0) g/dL Hct (40.0-54.0) % MCV (80-98) fL MCH (27-31) pg MCHC (32-36) % Plt Count (150-400) K/uL Neut % (Auto) (36-66) % Lymph % (Auto) (24-44) % Kerr % (Auto) (2-6) % Eos % (Auto) (2-4) % Baso % (Auto) (0-1) % Sodium (140-148) mmol/L Potassium (3.6-5.2) mmol/L Chloride (100-108) mmol/L Carbon Dioxide (21-32) mmol/L Anion Gap (5.0-14.0) mmol/L BUN (7-18) mg/dL Creatinine (0.8-1.3) mg/dL Est Cr Clr Drug Dosing mL/min Estimated GFR (MDRD) (>60) Glucose (74-106) mg/dL POC Glucose 256 H (74-106) mg/dL Calcium (8.5-10.1) mg/dL Med Orders - Current: Current Medications Acetaminophen/Codeine Phosphate (Acetaminophen/Codeine 300-30 Mg Tab) 1 tab PO Q6H PRN PRN Reason: Pain Aspirin (Aspirin 81 Mg Tab.Ec) 81 mg PO DAILY [facility] Last Admin: 10/18/21 11:11 Dose: Not Given Documented by: Atenolol (Atenolol 25 Mg Tab) 25 mg PO DAILY [facility] Last Admin: 10/18/21 12:27 Dose: 25 mg Documented by: Furosemide (Furosemide 20 Mg/2 Ml Vial) 20 mg IVPUSH Q6H [facility] Last Admin: 10/18/21 00:02 Dose: 20 mg Documented by: Glipizide (Glipizide 5 Mg Tab.Er) 10 mg PO BIDMEALS [facility] Last Admin: 10/18/21 11:11 Dose: Not Given Documented by: Guaifenesin/Dextromethorphan (Guaifenesin/Dextromethorphan 100-10 Mg/5 Ml Soln 10 Ml Cup) 10 ml PO Q4H PRN PRN Reason: Cough Hydrochlorothiazide (Hydrochlorothiazide 25 Mg Tab) 25 mg PO DAILY [facility] Last Admin: 10/18/21 11:11 Dose: Not Given Documented by: Ceftriaxone Sodium 1 gm/ (Sodium Chloride) 50 mls @ 100 mls/hr IV Q24H [facility] Pantoprazole Sodium (Pantoprazole 40 Mg Tab.Cr) 40 mg PO BIDAC [facility] Last Admin: 10/18/21 11:11 Dose: Not Given Documented by: Sodium Chloride (Sodium Chloride 0.9% 10 Ml Syringe) 10 ml FLUSH ASDIRECTED PRN PRN Reason: Keep Vein Open Spironolactone (Spironolactone 25 Mg Tab) 25 mg PO DAILY [facility] Last Admin: 10/18/21 11:11 Dose: Not Given Documented by: Tramadol HCl (Tramadol 50 Mg Tab) 50 mg PO Q6H PRN PRN Reason: Pain Last Admin: 10/17/21 16:27 Dose: 50 mg Documented by: Discontinued Medications Ceftriaxone Sodium (Ceftriaxone 1 Gm Advvial) Confirm Administered Dose 2 gm IV .STK-MED ONE Stop: 10/17/21 20:59 Last Admin: 10/17/21 21:06 Dose: Not Given Documented by: Diphenhydramine HCl (Diphenhydramine 50 Mg/Ml Sdv) 25 mg IVPUSH ONETIME ONE Stop: 10/17/21 20:01 Last Admin: 10/17/21 20:39 Dose: 25 mg Documented by: Diphenhydramine HCl (Diphenhydramine 50 Mg/Ml Sdv) 25 mg IVPUSH ONETIME ONE Stop: 10/18/21 08:01 Furosemide (Furosemide 20 Mg/2 Ml Vial) 20 mg IVPUSH ONETIME ONE Stop: 10/16/21 21:11 Last Admin: 10/16/21 22:01 Dose: 20 mg Documented by: Ceftriaxone Sodium 2 gm/ (Sodium Chloride) 50 mls @ 100 mls/hr IV ONETIME ONE Stop: 10/17/21 21:12 Last Admin: 10/17/21 22:01 Dose: Not Given Documented by: Ceftriaxone Sodium 2 gm/ (Sodium Chloride) 50 mls @ 100 mls/hr IV ONETIME ONE Stop: 10/17/21 22:29 Last Admin: 10/17/21 22:14 Dose: 100 mls/hr Documented by: Lidocaine HCl (Lidocaine 2% Jelly 10 Ml Urojet) 10 ml MUCMEM ONETIME ONE Stop: 10/16/21 21:48 Last Admin: 10/16/21 22:01 Dose: 10 ml Documented by: Methylprednisolone Sodium Succinate (Methylprednisolone Sodium Succinate 40 Mg/1 Ml Sdv) 80 mg IVPUSH ONETIME ONE Stop: 10/17/21 20:01 Last Admin: 10/17/21 20:41 Dose: 80 mg Documented by: Methylprednisolone Sodium Succinate (Methylprednisolone Sodium Succinate 40 Mg/1 Ml Sdv) 80 mg IVPUSH ONETIME ONE Stop: 10/18/21 08:01 Metolazone (Metolazone 2.5 Mg Tab) 5 mg PO ONETIME ONE Stop: 10/16/21 21:49 Last Admin: 10/16/21 22:37 Dose: 5 mg Documented by: - Exam Urinary Catheter Total Time: 1Days 10Hours General: Alert, Oriented, Cooperative HEENT: Pupils Equal, Pupils Reactive, EOMI, Mucous Membr. Moist/[place] Lungs: Clear to Auscultation Cardiovascular: Regular Rate GI/Abdominal Exam: Normal Bowel Sounds, Soft Extremities: Pedal Edema Peripheral Pulses: 1+: Radial (L), Radial (R) Skin: Warm, Dry Neurological: No New Focal Deficit Psy/Mental Status: Alert, Normal Affect - Patient Data Lab Results Last 24 hrs: Laboratory Results - last 24 hr 10/17/21 10/17/21 10/17/21 Range/Units 13:47 16:17 20:55 WBC (4.5-11.0) K/uL RBC (4.30-5.90) M/uL Hgb (12.0-15.0) g/dL Hct (40.0-54.0) % MCV (80-98) fL MCH (27-31) pg MCHC (32-36) % Plt Count (150-400) K/uL Neut % (Auto) (36-66) % Lymph % (Auto) (24-44) % Kerr % (Auto) (2-6) % Eos % (Auto) (2-4) % Baso % (Auto) (0-1) % Sodium (140-148) mmol/L Potassium (3.6-5.2) mmol/L Chloride (100-108) mmol/L Carbon Dioxide (21-32) mmol/L Anion Gap (5.0-14.0) mmol/L BUN (7-18) mg/dL Creatinine (0.8-1.3) mg/dL Est Cr Clr Drug Dosing mL/min Estimated GFR (MDRD) (>60) Glucose (74-106) mg/dL POC Glucose 97 81 211 H (74-106) mg/dL Calcium (8.5-10.1) mg/dL 10/18/21 10/18/21 10/18/21 Range/Units 04:10 04:10 07:26 WBC 6.0 (4.5-11.0) K/uL RBC 5.52 (4.30-5.90) M/uL Hgb 14.4 (12.0-15.0) g/dL Hct 46.8 (40.0-54.0) % MCV 85 (80-98) fL MCH 26 L (27-31) pg MCHC 31 L (32-36) % Plt Count 113 L (150-400) K/uL Neut % (Auto) 91.7 H (36-66) % Lymph % (Auto) 6.5 L (24-44) % Kerr % (Auto) 1.8 L (2-6) % Eos % (Auto) 0.0 L (2-4) % Baso % (Auto) 0.0 (0-1) % Sodium 142 (140-148) mmol/L Potassium 4.0 (3.6-5.2) mmol/L Chloride 103 (100-108) mmol/L Carbon Dioxide 30 (21-32) mmol/L Anion Gap 9.5 (5.0-14.0) mmol/L BUN 20 H (7-18) mg/dL Creatinine 1.8 H (0.8-1.3) mg/dL Est Cr Clr Drug Dosing 33.80 mL/min Estimated GFR (MDRD) 36 L (>60) Glucose 174 H (74-106) mg/dL POC Glucose 159 H (74-106) mg/dL Calcium 9.0 (8.5-10.1) mg/dL 10/18/ Range/Units 11:16 WBC (4.5-11.0) K/uL RBC (4.30-5.90) M/uL Hgb (12.0-15.0) g/dL Hct (40.0-54.0) % MCV (80-98) fL MCH (27-31) pg MCHC (32-36) % Plt Count (150-400) K/uL Neut % (Auto) (36-66) % Lymph % (Auto) (24-44) % Kerr % (Auto) (2-6) % Eos % (Auto) (2-4) % Baso % (Auto) (0-1) % Sodium (140-148) mmol/L Potassium (3.6-5.2) mmol/L Chloride (100-108) mmol/L Carbon Dioxide (21-32) mmol/L Anion Gap (5.0-14.0) mmol/L BUN (7-18) mg/dL Creatinine (0.8-1.3) mg/dL Est Cr Clr Drug Dosing mL/min Estimated GFR (MDRD) (>60) Glucose (74-106) mg/dL POC Glucose 256 H (74-106) mg/dL Calcium (8.5-10.1) mg/dL Result Diagrams: 10/18/21 04:10 10/18/21 04:10 Sepsis Event Note - Evaluation Sepsis Screening Result: No Definite Risk - Focused Exam Vital Signs: Vital Signs Temp Pulse Pulse Resp BP BP Pulse Ox 10/18/21 12:27 100 104/58 L 10/18/21 10:51 97.0 F 100 16 104/58 L 97 10/18/21 08:37 96.5 F L 99 16 143/73 H 94 L 10/18/21 03:29 95.1 F L 84 16 129/77 99 - Problem List Review Problem List Initiated/Reviewed/Updated: Yes - My Orders Last 24 Hours: My Active Orders 10/17/21 12:00 Furosemide [Lasix] 20 mg IVPUSH Q6H 10/17/21 17:55 Acetaminophen/Codeine [Tylenol with Codeine No.3 300MG/30MG] 1 tab PO Q6H PRN 10/17/21 17:57 Dextromethorphan/guaiFENesin [Robitussin DM] 10 ml PO Q4H PRN 10/17/21 21:00 GLUCOSE POC LAB TO COLLECT JPM [POC] QIDACANDBED 10/18/21 06:05 Communication Order [RC] ASDIRECTED 10/18/21 16:30 GLUCOSE POC LAB TO COLLECT JPM [POC] QIDACANDBED 10/18/21 21:00 GLUCOSE POC LAB TO COLLECT JPM [POC] QIDACANDBED cefTRIAXone [Rocephin] 1 gm Sodium Chloride 0.9% [Normal Saline AdvBag] 50 ml IV Q24H 10/19/21 07:30 GLUCOSE POC LAB TO COLLECT JPM [POC] QIDACANDBED 10/19/21 11:30 GLUCOSE POC LAB TO COLLECT JPM [POC] QIDACANDBED 10/19/21 16:30 GLUCOSE POC LAB TO COLLECT JPM [POC] QIDACANDBED 10/19/21 21:00 GLUCOSE POC LAB TO COLLECT JPM [POC] QIDACANDBED 10/20/21 07:30 GLUCOSE POC LAB TO COLLECT JPM [POC] QIDACANDBED 10/20/21 11:30 GLUCOSE POC LAB TO COLLECT JPM [POC] QIDACANDBED 10/20/21 16:30 GLUCOSE POC LAB TO COLLECT JPM [POC] QIDACANDBED 10/20/21 21:00 GLUCOSE POC LAB TO COLLECT JPM [POC] QIDACANDBED 10/21/21 07:30 GLUCOSE POC LAB TO COLLECT JPM [POC] QIDACANDBED 10/21/21 11:30 GLUCOSE POC LAB TO COLLECT JPM [POC] QIDACANDBED - Plan Plan:: Assessment/Plan: #1. CHF with fluid retention. Output in the last 24 is significant. Creat. is up to 1.8. Will hold the diuretics and repeat the blood work in the morning. CT of the chest shows bilateral fluid in the lungs. Heart is rapid so chelsea restart the Atenolol that was held this morning. #2. DMII. Will adjust and treat blood sugars. Elevated this morning after fruit. #3. Arthrosclerosis arteries diffuse. Will check arterial flow in the left leg. #4. ASHD: Chronic #5. BKA right leg.] #6. History of HTN: #7. History of HLD
[2021-10-18] MEDS: cefTRIAXone 1 GM in Sodium Chloride 0.9% 50 ML IV SCH (20:56)
[2021-10-19] MEDS: glipiZIDE 5 MG Tab.ER PO SCH ×2 (07:25→17:27)
[2021-10-19] MEDS: Pantoprazole 40 MG Tab.CR PO SCH ×2 (07:25→15:31)
--- NOTE | 2021-10-19 09:20 | PCM.PN ---
- General Info Date of Service: 10/19/21 Functional Status: Reports: Pain Controlled - Review of Systems General: Reports: Weakness, Fatigue HEENT: Reports: No Symptoms Pulmonary: Reports: Shortness of Breath Cardiovascular: Reports: No Symptoms Gastrointestinal: Reports: No Symptoms Genitourinary: Reports: No Symptoms Musculoskeletal: Reports: Leg Pain Skin: Reports: No Symptoms Neurological: Reports: No Symptoms Psychiatric: Reports: No Symptoms - Patient Data Vitals - Most Recent: Last Vital Signs Temp 97.5 F 10/19/21 07:00 Pulse 82 10/19/21 07:00 Resp 18 10/19/21 07:00 BP 93/74 10/19/21 07:00 Pulse Ox 100 10/19/21 07:00 Weight - Most Recent: 195 lb 12.328 oz I&O - Last 24 Hours: Intake & Output 10/18/21 10/19/21 10/19/21 22:59 06:59 14:59 Intake Total 480 600 Output Total 400 300 Balance 80 300 Lab Results Last 24 Hours: Laboratory Results - last 24 hr 10/18/21 10/18/21 10/18/21 Range/Units 11:16 16:15 20:53 Sodium (140-148) mmol/L Potassium (3.6-5.2) mmol/L Chloride (100-108) mmol/L Carbon Dioxide (21-32) mmol/L Anion Gap (5.0-14.0) mmol/L BUN (7-18) mg/dL Creatinine (0.8-1.3) mg/dL Est Cr Clr Drug Dosing mL/min Estimated GFR (MDRD) (>60) Glucose (74-106) mg/dL POC Glucose 256 H 293 H 290 H (74-106) mg/dL Calcium (8.5-10.1) mg/dL 10/19/21 10/19/21 Range/Units 04:25 07:33 Sodium 138 L (140-148) mmol/L Potassium 3.8 (3.6-5.2) mmol/L Chloride 102 (100-108) mmol/L Carbon Dioxide 28 (21-32) mmol/L Anion Gap 11.8 (5.0-14.0) mmol/L BUN 31 H D (7-18) mg/dL Creatinine 1.9 H (0.8-1.3) mg/dL Est Cr Clr Drug Dosing 32.02 mL/min Estimated GFR (MDRD) 34 L (>60) Glucose 237 H (74-106) mg/dL POC Glucose 195 H (74-106) mg/dL Calcium 8.5 (8.5-10.1) mg/dL Med Orders - Current: Current Medications Acetaminophen/Codeine Phosphate (Acetaminophen/Codeine 300-30 Mg Tab) 1 tab PO Q6H PRN PRN Reason: Pain Aspirin (Aspirin 81 Mg Tab.Ec) 81 mg PO DAILY [facility] Last Admin: 10/18/21 11:11 Dose: Not Given Documented by: Atenolol (Atenolol 25 Mg Tab) 25 mg PO DAILY [facility] Last Admin: 10/18/21 12:27 Dose: 25 mg Documented by: Glipizide (Glipizide 5 Mg Tab.Er) 10 mg PO BIDMEALS [facility] Last Admin: 10/19/21 07:25 Dose: 10 mg Documented by: Guaifenesin/Dextromethorphan (Guaifenesin/Dextromethorphan 100-10 Mg/5 Ml Soln 10 Ml Cup) 10 ml PO Q4H PRN PRN Reason: Cough Ceftriaxone Sodium 1 gm/ (Sodium Chloride) 50 mls @ 100 mls/hr IV Q24H [facility] Last Admin: 10/18/21 20:56 Dose: 100 mls/hr Documented by: Pantoprazole Sodium (Pantoprazole 40 Mg Tab.Cr) 40 mg PO BIDAC [facility] Last Admin: 10/19/21 07:25 Dose: 40 mg Documented by: Sodium Chloride (Sodium Chloride 0.9% 10 Ml Syringe) 10 ml FLUSH ASDIRECTED PRN PRN Reason: Keep Vein Open Tramadol HCl (Tramadol 50 Mg Tab) 50 mg PO Q6H PRN PRN Reason: Pain Last Admin: 10/17/21 16:27 Dose: 50 mg Documented by: Discontinued Medications Ceftriaxone Sodium (Ceftriaxone 1 Gm Advvial) Confirm Administered Dose 2 gm IV .STK-MED ONE Stop: 10/17/21 20:59 Last Admin: 10/17/21 21:06 Dose: Not Given Documented by: Diphenhydramine HCl (Diphenhydramine 50 Mg/Ml Sdv) 25 mg IVPUSH ONETIME ONE Stop: 10/17/21 20:01 Last Admin: 10/17/21 20:39 Dose: 25 mg Documented by: Diphenhydramine HCl (Diphenhydramine 50 Mg/Ml Sdv) 25 mg IVPUSH ONETIME ONE Stop: 10/18/21 08:01 Furosemide (Furosemide 20 Mg/2 Ml Vial) 20 mg IVPUSH ONETIME ONE Stop: 10/16/21 21:11 Last Admin: 10/16/21 22:01 Dose: 20 mg Documented by: Furosemide (Furosemide 20 Mg/2 Ml Vial) 20 mg IVPUSH Q6H [facility] Last Admin: 10/18/21 00:02 Dose: 20 mg Documented by: Hydrochlorothiazide (Hydrochlorothiazide 25 Mg Tab) 25 mg PO DAILY [facility] Last Admin: 10/18/21 11:11 Dose: Not Given Documented by: Ceftriaxone Sodium 2 gm/ (Sodium Chloride) 50 mls @ 100 mls/hr IV ONETIME ONE Stop: 10/17/21 21:12 Last Admin: 10/17/21 22:01 Dose: Not Given Documented by: Ceftriaxone Sodium 2 gm/ (Sodium Chloride) 50 mls @ 100 mls/hr IV ONETIME ONE Stop: 10/17/21 22:29 Last Admin: 10/17/21 22:14 Dose: 100 mls/hr Documented by: Lidocaine HCl (Lidocaine 2% Jelly 10 Ml Urojet) 10 ml MUCMEM ONETIME ONE Stop: 10/16/21 21:48 Last Admin: 10/16/21 22:01 Dose: 10 ml Documented by: Methylprednisolone Sodium Succinate (Methylprednisolone Sodium Succinate 40 Mg/1 Ml Sdv) 80 mg IVPUSH ONETIME ONE Stop: 10/17/21 20:01 Last Admin: 10/17/21 20:41 Dose: 80 mg Documented by: Methylprednisolone Sodium Succinate (Methylprednisolone Sodium Succinate 40 Mg/1 Ml Sdv) 80 mg IVPUSH ONETIME ONE Stop: 10/18/21 08:01 Metolazone (Metolazone 2.5 Mg Tab) 5 mg PO ONETIME ONE Stop: 10/16/21 21:49 Last Admin: 10/16/21 22:37 Dose: 5 mg Documented by: Spironolactone (Spironolactone 25 Mg Tab) 25 mg PO DAILY [facility] Last Admin: 10/18/21 11:11 Dose: Not Given Documented by: - Exam Urinary Catheter Total Time: 2Days 1Hours General: Alert, Oriented, Mild Distress HEENT: Pupils Equal, Pupils Reactive, EOMI, Mucous Membr. Moist/[place] Neck: Supple Lungs: Clear to Auscultation, Normal Respiratory Effort Cardiovascular: Regular Rate GI/Abdominal Exam: Normal Bowel Sounds, Soft Extremities: Pedal Edema Peripheral Pulses: 1+: Radial (L), Radial (R) - Patient Data Lab Results Last 24 hrs: Laboratory Results - last 24 hr 10/18/21 10/18/21 10/18/21 Range/Units 11:16 16:15 20:53 Sodium (140-148) mmol/L Potassium (3.6-5.2) mmol/L Chloride (100-108) mmol/L Carbon Dioxide (21-32) mmol/L Anion Gap (5.0-14.0) mmol/L BUN (7-18) mg/dL Creatinine (0.8-1.3) mg/dL Est Cr Clr Drug Dosing mL/min Estimated GFR (MDRD) (>60) Glucose (74-106) mg/dL POC Glucose 256 H 293 H 290 H (74-106) mg/dL Calcium (8.5-10.1) mg/dL 10/19/21 10/19/21 Range/Units 04:25 07:33 Sodium 138 L (140-148) mmol/L Potassium 3.8 (3.6-5.2) mmol/L Chloride 102 (100-108) mmol/L Carbon Dioxide 28 (21-32) mmol/L Anion Gap 11.8 (5.0-14.0) mmol/L BUN 31 H D (7-18) mg/dL Creatinine 1.9 H (0.8-1.3) mg/dL Est Cr Clr Drug Dosing 32.02 mL/min Estimated GFR (MDRD) 34 L (>60) Glucose 237 H (74-106) mg/dL POC Glucose 195 H (74-106) mg/dL Calcium 8.5 (8.5-10.1) mg/dL Result Diagrams: 10/18/21 04:10 10/19/21 04:25 Sepsis Event Note - Evaluation Sepsis Screening Result: No Definite Risk - Focused Exam Vital Signs: Vital Signs Temp Pulse Resp BP Pulse Ox 10/19/21 07:00 97.5 F 82 18 93/74 100 10/19/21 02:32 95.2 F L 86 105/71 94 L 10/18/21 23:00 88 18 122/80 98 - Problem List Review Problem List Initiated/Reviewed/Updated: Yes - My Orders Last 24 Hours: My Active Orders 10/18/21 13:17 Resuscitation Status Routine 10/18/21 21:00 cefTRIAXone [Rocephin] 1 gm Sodium Chloride 0.9% [Normal Saline AdvBag] 50 ml IV Q24H 10/19/21 11:30 GLUCOSE POC LAB TO COLLECT JPM [POC] QIDACANDBED 10/19/21 16:30 GLUCOSE POC LAB TO COLLECT JPM [POC] QIDACANDBED 10/19/21 21:00 GLUCOSE POC LAB TO COLLECT JPM [POC] QIDACANDBED 10/20/21 07:30 GLUCOSE POC LAB TO COLLECT JPM [POC] QIDACANDBED 10/20/21 11:30 GLUCOSE POC LAB TO COLLECT JPM [POC] QIDACANDBED 10/20/21 16:30 GLUCOSE POC LAB TO COLLECT JPM [POC] QIDACANDBED 10/20/21 21:00 GLUCOSE POC LAB TO COLLECT JPM [POC] QIDACANDBED 10/21/21 07:30 GLUCOSE POC LAB TO COLLECT JPM [POC] QIDACANDBED 10/21/21 11:30 GLUCOSE POC LAB TO COLLECT JPM [POC] QIDACANDBED - Plan Plan:: Assessment/Plan: #1. CHF with fluid retention. Output in the last 24 is adequate. Creat. is up to 1.9. Will hold the diuretics and repeat the blood work in the morning. CT of the chest shows bilateral fluid in the lungs. Heart is rapid so chelsea restart the Atenolol that was held this morning. #2. DMII. Will adjust and treat blood sugars. Elevated this morning after fruit. #3. Arthrosclerosis arteries diffuse. Will check arterial flow in the left leg. #4. ASHD: Chronic #5. BKA right leg.] #6. History of HTN: #7. History of HLD
[2021-10-19] MEDS: Aspirin 81 MG Tab.EC PO SCH (09:25)
[2021-10-19] MEDS: Atenolol 25 MG Tab PO SCH (09:25)
[2021-10-19] MEDS ORDERED: Bacitracin Oint 1 GM U/D Packet TOP SCH (09:30)
[2021-10-19] MEDS: Enoxaparin 30 MG/0.3 ML Syringe SUBCUT SCH (10:23)
[2021-10-19] MEDS: Bacitracin Oint 28.35 GM Tube TOP SCH ×2 (10:48→20:19)
[2021-10-19] MEDS: cefTRIAXone 1 GM in Sodium Chloride 0.9% 50 ML IV SCH (20:19)
[2021-10-20] MEDS: Pantoprazole 40 MG Tab.CR PO SCH ×2 (09:05→16:12)
[2021-10-20] MEDS: glipiZIDE 5 MG Tab.ER PO SCH ×2 (09:05→16:12)
[2021-10-20] MEDS: Aspirin 81 MG Tab.EC PO SCH (09:05)
[2021-10-20] MEDS: Enoxaparin 30 MG/0.3 ML Syringe SUBCUT SCH (09:06)
[2021-10-20] MEDS: Atenolol 25 MG Tab PO SCH (09:06)
[2021-10-20] MEDS: Bacitracin Oint 28.35 GM Tube TOP SCH ×2 (09:06→21:09)
--- NOTE | 2021-10-20 15:15 | CR ---
CHEST: Portable 10/20/2021 at 4:31 AM CLINICAL HISTORY:Pneumonia COMPARISON:2320 FINDINGS: Heart is enlarged. Pulmonary vascularity appears normal. Patient has permanent cardiac pacer/defibrillator. There has been previous sternotomy. There are bilateral pleural effusions right greater than left. These are similar if not slightly diminished when compared to 10/16/2021. IMPRESSION: Bilateral pleural effusions right greater than left. There may be some minimal improvement since prior study. Cardiomegaly
[2021-10-20] MEDS ORDERED: Aspirin 325 MG Tab.EC PO ONE (15:30)
--- NOTE | 2021-10-20 15:52 | PCM.PN ---
- General Info Date of Service: 10/20/21 Functional Status: Reports: Pain Controlled - Review of Systems General: Reports: Weakness HEENT: Reports: No Symptoms Pulmonary: Reports: Shortness of Breath Cardiovascular: Reports: No Symptoms Gastrointestinal: Reports: No Symptoms Genitourinary: Reports: No Symptoms Musculoskeletal: Reports: No Symptoms Skin: Reports: No Symptoms Neurological: Reports: No Symptoms Psychiatric: Reports: No Symptoms - Patient Data Vitals - Most Recent: Last Vital Signs Temp 95.2 F L 10/20/21 14:46 Pulse 85 10/20/21 14:46 Resp 16 10/20/21 14:46 BP 99/77 10/20/21 14:46 Pulse Ox 100 10/20/21 14:46 Weight - Most Recent: 198 lb 6.656 oz I&O - Last 24 Hours: Intake & Output 10/20/21 10/20/21 10/20/21 06:59 14:59 22:59 Intake Total 300 570 Output Total 750 250 Balance -450 320 Lab Results Last 24 Hours: Laboratory Results - last 24 hr 10/19/21 10/19/21 10/20/21 Range/Units 16:45 20:53 04:15 Sodium 142 (140-148) mmol/L Potassium 3.8 (3.6-5.2) mmol/L Chloride 103 (100-108) mmol/L Carbon Dioxide 31 (21-32) mmol/L Anion Gap 7.7 (5.0-14.0) mmol/L BUN 34 H (7-18) mg/dL Creatinine 2.0 H (0.8-1.3) mg/dL Est Cr Clr Drug Dosing 30.42 mL/min Estimated GFR (MDRD) 32 L (>60) Glucose 168 H (74-106) mg/dL POC Glucose 182 H 270 H (74-106) mg/dL Calcium 8.9 (8.5-10.1) mg/dL 10/20/21 10/20/21 Range/Units 07:14 11:14 Sodium (140-148) mmol/L Potassium (3.6-5.2) mmol/L Chloride (100-108) mmol/L Carbon Dioxide (21-32) mmol/L Anion Gap (5.0-14.0) mmol/L BUN (7-18) mg/dL Creatinine (0.8-1.3) mg/dL Est Cr Clr Drug Dosing mL/min Estimated GFR (MDRD) (>60) Glucose (74-106) mg/dL POC Glucose 129 H 149 H (74-106) mg/dL Calcium (8.5-10.1) mg/dL Med Orders - Current: Current Medications Acetaminophen/Codeine Phosphate (Acetaminophen/Codeine 300-30 Mg Tab) 1 tab PO Q6H PRN PRN Reason: Pain Last Admin: 10/20/21 08:03 Dose: 1 tab Documented by: Aspirin (Aspirin 81 Mg Tab.Ec) 81 mg PO DAILY [facility] Last Admin: 10/20/21 09:05 Dose: 81 mg Documented by: Atenolol (Atenolol 25 Mg Tab) 25 mg PO DAILY [facility] Last Admin: 10/20/21 09:06 Dose: 25 mg Documented by: Bacitracin (Bacitracin Oint 28.35 Gm Tube) 0 gm TOP BID [facility] Last Admin: 10/20/21 09:06 Dose: 1 applic Documented by: Enoxaparin Sodium (Enoxaparin 30 Mg/0.3 Ml Syringe) 30 mg SUBCUT Q24H [facility] Last Admin: 10/20/21 09:06 Dose: 30 mg Documented by: Glipizide (Glipizide 5 Mg Tab.Er) 10 mg PO BIDMEALS [facility] Last Admin: 10/20/21 09:05 Dose: 10 mg Documented by: Guaifenesin/Dextromethorphan (Guaifenesin/Dextromethorphan 100-10 Mg/5 Ml Soln 10 Ml Cup) 10 ml PO Q4H PRN PRN Reason: Cough Ceftriaxone Sodium 1 gm/ (Sodium Chloride) 50 mls @ 100 mls/hr IV Q24H [facility] Last Admin: 10/19/21 20:19 Dose: 100 mls/hr Documented by: Pantoprazole Sodium (Pantoprazole 40 Mg Tab.Cr) 40 mg PO BIDAC [facility] Last Admin: 10/20/21 09:05 Dose: 40 mg Documented by: Sodium Chloride (Sodium Chloride 0.9% 10 Ml Syringe) 10 ml FLUSH ASDIRECTED PRN PRN Reason: Keep Vein Open Tramadol HCl (Tramadol 50 Mg Tab) 50 mg PO Q6H PRN PRN Reason: Pain Last Admin: 10/17/21 16:27 Dose: 50 mg Documented by: Discontinued Medications Aspirin (Aspirin 325 Mg Tab.Ec) 325 mg PO ONETIME ONE Stop: 10/20/21 15:31 Last Admin: 10/20/21 15:35 Dose: 325 mg Documented by: Ceftriaxone Sodium (Ceftriaxone 1 Gm Advvial) Confirm Administered Dose 2 gm IV .STK-MED ONE Stop: 10/17/21 20:59 Last Admin: 10/17/21 21:06 Dose: Not Given Documented by: Diphenhydramine HCl (Diphenhydramine 50 Mg/Ml Sdv) 25 mg IVPUSH ONETIME ONE Stop: 10/17/21 20:01 Last Admin: 10/17/21 20:39 Dose: 25 mg Documented by: Diphenhydramine HCl (Diphenhydramine 50 Mg/Ml Sdv) 25 mg IVPUSH ONETIME ONE Stop: 10/18/21 08:01 Furosemide (Furosemide 20 Mg/2 Ml Vial) 20 mg IVPUSH ONETIME ONE Stop: 10/16/21 21:11 Last Admin: 10/16/21 22:01 Dose: 20 mg Documented by: Furosemide (Furosemide 20 Mg/2 Ml Vial) 20 mg IVPUSH Q6H [facility] Last Admin: 10/18/21 00:02 Dose: 20 mg Documented by: Hydrochlorothiazide (Hydrochlorothiazide 25 Mg Tab) 25 mg PO DAILY [facility] Last Admin: 10/18/21 11:11 Dose: Not Given Documented by: Ceftriaxone Sodium 2 gm/ (Sodium Chloride) 50 mls @ 100 mls/hr IV ONETIME ONE Stop: 10/17/21 21:12 Last Admin: 10/17/21 22:01 Dose: Not Given Documented by: Ceftriaxone Sodium 2 gm/ (Sodium Chloride) 50 mls @ 100 mls/hr IV ONETIME ONE Stop: 10/17/21 22:29 Last Admin: 10/17/21 22:14 Dose: 100 mls/hr Documented by: Lidocaine HCl (Lidocaine 2% Jelly 10 Ml Urojet) 10 ml MUCMEM ONETIME ONE Stop: 10/16/21 21:48 Last Admin: 10/16/21 22:01 Dose: 10 ml Documented by: Methylprednisolone Sodium Succinate (Methylprednisolone Sodium Succinate 40 Mg/1 Ml Sdv) 80 mg IVPUSH ONETIME ONE Stop: 10/17/21 20:01 Last Admin: 10/17/21 20:41 Dose: 80 mg Documented by: Methylprednisolone Sodium Succinate (Methylprednisolone Sodium Succinate 40 Mg/1 Ml Sdv) 80 mg IVPUSH ONETIME ONE Stop: 10/18/21 08:01 Metolazone (Metolazone 2.5 Mg Tab) 5 mg PO ONETIME ONE Stop: 10/16/21 21:49 Last Admin: 10/16/21 22:37 Dose: 5 mg Documented by: Spironolactone (Spironolactone 25 Mg Tab) 25 mg PO DAILY [facility] Last Admin: 10/18/21 11:11 Dose: Not Given Documented by: - Exam Urinary Catheter Total Time: 3Days 10Hours General: Alert, Oriented HEENT: Pupils Equal, Pupils Reactive, EOMI, Mucous Membr. Moist/[place] Neck: Supple Lungs: Clear to Auscultation, Normal Respiratory Effort Cardiovascular: Regular Rate, Regular Rhythm GI/Abdominal Exam: Normal Bowel Sounds, Soft, Non-Tender, No Organomegaly, No Distention, No Abnormal Bruit, No Mass, Pelvis Stable Extremities: Pedal Edema - Patient Data Lab Results Last 24 hrs: Laboratory Results - last 24 hr 10/19/21 10/19/21 10/20/21 Range/Units 16:45 20:53 04:15 Sodium 142 (140-148) mmol/L Potassium 3.8 (3.6-5.2) mmol/L Chloride 103 (100-108) mmol/L Carbon Dioxide 31 (21-32) mmol/L Anion Gap 7.7 (5.0-14.0) mmol/L BUN 34 H (7-18) mg/dL Creatinine 2.0 H (0.8-1.3) mg/dL Est Cr Clr Drug Dosing 30.42 mL/min Estimated GFR (MDRD) 32 L (>60) Glucose 168 H (74-106) mg/dL POC Glucose 182 H 270 H (74-106) mg/dL Calcium 8.9 (8.5-10.1) mg/dL 10/20/21 10/20/21 Range/Units 07:14 11:14 Sodium (140-148) mmol/L Potassium (3.6-5.2) mmol/L Chloride (100-108) mmol/L Carbon Dioxide (21-32) mmol/L Anion Gap (5.0-14.0) mmol/L BUN (7-18) mg/dL Creatinine (0.8-1.3) mg/dL Est Cr Clr Drug Dosing mL/min Estimated GFR (MDRD) (>60) Glucose (74-106) mg/dL POC Glucose 129 H 149 H (74-106) mg/dL Calcium (8.5-10.1) mg/dL Result Diagrams: 10/18/21 04:10 10/20/21 04:15 Sepsis Event Note - Evaluation Sepsis Screening Result: Possible Sepsis Risk - Focused Exam Vital Signs: Vital Signs Temp Pulse Pulse Resp BP BP Pulse Ox 10/20/21 14:46 95.2 F L 85 16 99/77 100 10/20/21 10:47 97.1 F 89 18 135/71 99 10/20/21 09:06 80 116/70 10/20/21 07:00 95.7 F L 80 18 116/70 90 L 10/20/21 03:53 95.0 F L 79 18 109/78 96 - Problem List Review Problem List Initiated/Reviewed/Updated: Yes - My Orders Last 24 Hours: My Active Orders 10/20/21 12:42 IBRAHIMA Hose [Antiembolic Hose] [OM.PC] Routine 10/20/21 16:30 GLUCOSE POC LAB TO COLLECT JPM [POC] QIDACANDBED 10/20/21 21:00 GLUCOSE POC LAB TO COLLECT JPM [POC] QIDACANDBED 10/21/21 07:30 GLUCOSE POC LAB TO COLLECT JPM [POC] QIDACANDBED 10/21/21 11:30 GLUCOSE POC LAB TO COLLECT JPM [POC] QIDACANDBED - Plan Plan:: Assessment/Plan: #1. CHF with fluid retention. Output in the last 24 is poor and creat is 2.0. Will start IV fluid and balance output to improve renal funcition to improve kidney funcctioin. I will start the diuretics and and balance input/putput. CXR shows decrease fluid in the lungs. Heart is 14% > 100 bpm #2. DMII. Will adjust and treat blood sugars. Elevated this morning after fruit. #3. Arthrosclerosis arteries diffuse. Will check arterial flow in the left leg. #4. ASHD: Chronic #5. BKA right leg.] #6. History of HTN: #7. History of HLD
[2021-10-20] MEDS: Hydrochlorothiazide 25 MG Tab PO SCH (16:11)
[2021-10-20] MEDS: Spironolactone 25 MG Tab PO SCH (16:11)
[2021-10-20] MEDS ORDERED: Furosemide 20 MG Tab PO ONE (16:30)
[2021-10-20] MEDS: Sodium Chloride 0.9% 1,000 ML IV SCH (20:51)
[2021-10-20] MEDS: cefTRIAXone 1 GM in Sodium Chloride 0.9% 50 ML IV SCH (21:08)
[2021-10-21] MEDS: Sodium Chloride 0.9% 1,000 ML IV SCH ×2 (06:03→16:48)
[2021-10-21] MEDS: Hydrochlorothiazide 25 MG Tab PO SCH (08:07)
[2021-10-21] MEDS: glipiZIDE 5 MG Tab.ER PO SCH ×2 (08:07→16:09)
[2021-10-21] MEDS: Spironolactone 25 MG Tab PO SCH (08:07)
[2021-10-21] MEDS: Pantoprazole 40 MG Tab.CR PO SCH ×2 (08:08→16:09)
[2021-10-21] MEDS: Bacitracin Oint 28.35 GM Tube TOP SCH ×2 (08:08→22:28)
[2021-10-21] MEDS: Aspirin 81 MG Tab.EC PO SCH (08:08)
[2021-10-21] MEDS: Atenolol 25 MG Tab PO SCH (09:31)
[2021-10-21] MEDS: Enoxaparin 40 MG/0.4 ML Syringe SUBCUT SCH (09:38)
--- NOTE | 2021-10-21 12:54 | PCM.EKG ---
#1 Interpretation EKG Date: 10/16/21 Time: 21:24 Rhythm: Other (Ventricular paced complexes) Rate (Beats/Min): 104 [place]: LAD-Left [place] Deviation P-Wave: Absent QRS: LBBB ST-T: Normal QT: Prolonged [place]/PQ Interval: n/a Comparison: NA - No Prior EKG
--- NOTE | 2021-10-21 14:50 | PCM.PN ---
- General Info Date of Service: 10/21/21 Functional Status: Reports: Pain Controlled - Review of Systems General: Reports: Weakness HEENT: Reports: No Symptoms Pulmonary: Reports: Shortness of Breath Cardiovascular: Reports: No Symptoms Gastrointestinal: Reports: No Symptoms Genitourinary: Reports: No Symptoms Musculoskeletal: Reports: Leg Pain Skin: Reports: No Symptoms Psychiatric: Reports: No Symptoms - Patient Data Vitals - Most Recent: Last Vital Signs Temp 95.1 F L 10/21/21 10:58 Pulse 74 10/21/21 10:58 Resp 18 10/21/21 10:58 BP 121/71 10/21/21 10:58 Pulse Ox 100 10/21/21 10:58 Weight - Most Recent: 200 lb 6.403 oz I&O - Last 24 Hours: Intake & Output 10/20/21 10/21/21 10/21/21 22:59 06:59 14:59 Intake Total 1145 735 400 Output Total 750 1350 Balance 395 -615 400 Lab Results Last 24 Hours: Laboratory Results - last 24 hr 10/20/21 10/20/21 10/21/21 Range/Units 16:23 20:57 04:20 Sodium 143 (140-148) mmol/L Potassium 3.4 L (3.6-5.2) mmol/L Chloride 103 (100-108) mmol/L Carbon Dioxide 31 (21-32) mmol/L Anion Gap 12.4 (5.0-14.0) mmol/L BUN 33 H (7-18) mg/dL Creatinine 1.7 H (0.8-1.3) mg/dL Est Cr Clr Drug Dosing 35.78 mL/min Estimated GFR (MDRD) 39 L (>60) Glucose 163 H (74-106) mg/dL POC Glucose 121 H 219 H (74-106) mg/dL Calcium 8.4 L (8.5-10.1) mg/dL 10/21/21 10/21/21 Range/Units 07:14 11:14 Sodium (140-148) mmol/L Potassium (3.6-5.2) mmol/L Chloride (100-108) mmol/L Carbon Dioxide (21-32) mmol/L Anion Gap (5.0-14.0) mmol/L BUN (7-18) mg/dL Creatinine (0.8-1.3) mg/dL Est Cr Clr Drug Dosing mL/min Estimated GFR (MDRD) (>60) Glucose (74-106) mg/dL POC Glucose 135 H 146 H (74-106) mg/dL Calcium (8.5-10.1) mg/dL Med Orders - Current: Current Medications Acetaminophen/Codeine Phosphate (Acetaminophen/Codeine 300-30 Mg Tab) 1 tab PO Q6H PRN PRN Reason: Pain Last Admin: 10/20/21 08:03 Dose: 1 tab Documented by: Aspirin (Aspirin 81 Mg Tab.Ec) 81 mg PO DAILY [facility] Last Admin: 10/21/21 08:08 Dose: 81 mg Documented by: Atenolol (Atenolol 25 Mg Tab) 25 mg PO DAILY [facility] Last Admin: 10/21/21 09:31 Dose: Not Given Documented by: Bacitracin (Bacitracin Oint 28.35 Gm Tube) 0 gm TOP BID [facility] Last Admin: 10/21/21 08:08 Dose: 1 applic Documented by: Enoxaparin Sodium (Enoxaparin 40 Mg/0.4 Ml Syringe) 40 mg SUBCUT Q24H [facility] Last Admin: 10/21/21 09:38 Dose: 40 mg Documented by: Glipizide (Glipizide 5 Mg Tab.Er) 10 mg PO BIDMEALS [facility] Last Admin: 10/21/21 08:07 Dose: 10 mg Documented by: Guaifenesin/Dextromethorphan (Guaifenesin/Dextromethorphan 100-10 Mg/5 Ml Soln 10 Ml Cup) 10 ml PO Q4H PRN PRN Reason: Cough Hydrochlorothiazide (Hydrochlorothiazide 25 Mg Tab) 25 mg PO DAILY [facility] Last Admin: 10/21/21 08:07 Dose: 25 mg Documented by: Ceftriaxone Sodium 1 gm/ (Sodium Chloride) 50 mls @ 100 mls/hr IV Q24H [facility] Last Admin: 10/20/21 21:08 Dose: 100 mls/hr Documented by: Sodium Chloride (Normal Saline) 1,000 mls @ 100 mls/hr IV ASDIRECTED [facility] Last Admin: 10/21/21 06:03 Dose: 100 mls/hr Documented by: Pantoprazole Sodium (Pantoprazole 40 Mg Tab.Cr) 40 mg PO BIDAC [facility] Last Admin: 10/21/21 08:08 Dose: 40 mg Documented by: Potassium Chloride (Potassium Chloride 20 Meq Tab.Er) 20 meq PO DAILY [facility] Sodium Chloride (Sodium Chloride 0.9% 10 Ml Syringe) 10 ml FLUSH ASDIRECTED PRN PRN Reason: Keep Vein Open Spironolactone (Spironolactone 25 Mg Tab) 25 mg PO DAILY [facility] Last Admin: 10/21/21 08:07 Dose: 25 mg Documented by: Tramadol HCl (Tramadol 50 Mg Tab) 50 mg PO Q6H PRN PRN Reason: Pain Last Admin: 10/17/21 16:27 Dose: 50 mg Documented by: Discontinued Medications Aspirin (Aspirin 325 Mg Tab.Ec) 325 mg PO ONETIME ONE Stop: 10/20/21 15:31 Last Admin: 10/20/21 15:35 Dose: 325 mg Documented by: Ceftriaxone Sodium (Ceftriaxone 1 Gm Advvial) Confirm Administered Dose 2 gm IV .STK-MED ONE Stop: 10/17/21 20:59 Last Admin: 10/17/21 21:06 Dose: Not Given Documented by: Diphenhydramine HCl (Diphenhydramine 50 Mg/Ml Sdv) 25 mg IVPUSH ONETIME ONE Stop: 10/17/21 20:01 Last Admin: 10/17/21 20:39 Dose: 25 mg Documented by: Diphenhydramine HCl (Diphenhydramine 50 Mg/Ml Sdv) 25 mg IVPUSH ONETIME ONE Stop: 10/18/21 08:01 Enoxaparin Sodium (Enoxaparin 30 Mg/0.3 Ml Syringe) 30 mg SUBCUT Q24H [facility] Last Admin: 10/20/21 09:06 Dose: 30 mg Documented by: Furosemide (Furosemide 20 Mg/2 Ml Vial) 20 mg IVPUSH ONETIME ONE Stop: 10/16/21 21:11 Last Admin: 10/16/21 22:01 Dose: 20 mg Documented by: Furosemide (Furosemide 20 Mg/2 Ml Vial) 20 mg IVPUSH Q6H [facility] Last Admin: 10/18/21 00:02 Dose: 20 mg Documented by: Furosemide (Furosemide 20 Mg Tab) 20 mg PO ONETIME ONE Stop: 10/20/21 16:31 Last Admin: 10/20/21 16:11 Dose: 20 mg Documented by: Hydrochlorothiazide (Hydrochlorothiazide 25 Mg Tab) 25 mg PO DAILY [facility] Last Admin: 10/18/21 11:11 Dose: Not Given Documented by: Ceftriaxone Sodium 2 gm/ (Sodium Chloride) 50 mls @ 100 mls/hr IV ONETIME ONE Stop: 10/17/21 21:12 Last Admin: 10/17/21 22:01 Dose: Not Given Documented by: Ceftriaxone Sodium 2 gm/ (Sodium Chloride) 50 mls @ 100 mls/hr IV ONETIME ONE Stop: 10/17/21 22:29 Last Admin: 10/17/21 22:14 Dose: 100 mls/hr Documented by: Lidocaine HCl (Lidocaine 2% Jelly 10 Ml Urojet) 10 ml MUCMEM ONETIME ONE Stop: 10/16/21 21:48 Last Admin: 10/16/21 22:01 Dose: 10 ml Documented by: Methylprednisolone Sodium Succinate (Methylprednisolone Sodium Succinate 40 Mg/1 Ml Sdv) 80 mg IVPUSH ONETIME ONE Stop: 10/17/21 20:01 Last Admin: 10/17/21 20:41 Dose: 80 mg Documented by: Methylprednisolone Sodium Succinate (Methylprednisolone Sodium Succinate 40 Mg/1 Ml Sdv) 80 mg IVPUSH ONETIME ONE Stop: 10/18/21 08:01 Metolazone (Metolazone 2.5 Mg Tab) 5 mg PO ONETIME ONE Stop: 10/16/21 21:49 Last Admin: 10/16/21 22:37 Dose: 5 mg Documented by: Spironolactone (Spironolactone 25 Mg Tab) 25 mg PO DAILY [facility] Last Admin: 10/18/21 11:11 Dose: Not Given Documented by: - Exam Urinary Catheter Total Time: 4Days 10Hours General: Alert, Oriented HEENT: Pupils Equal, Pupils Reactive, EOMI, Mucous Membr. Moist/[place] Neck: Supple Lungs: Clear to Auscultation, Normal Respiratory Effort Cardiovascular: Regular Rate, Regular Rhythm GI/Abdominal Exam: Normal Bowel Sounds, Soft, Non-Tender, No Organomegaly, No Distention, No Abnormal Bruit, No Mass, Pelvis Stable Extremities: Pedal Edema Peripheral Pulses: 1+: Radial (L), Radial (R) Skin: Warm, Dry, Intact Neurological: No New Focal Deficit, Other (unable to walk as he has weakness and O2 drops.) - Patient Data Lab Results Last 24 hrs: Laboratory Results - last 24 hr 10/20/21 10/20/21 10/21/21 Range/Units 16:23 20:57 04:20 Sodium 143 (140-148) mmol/L Potassium 3.4 L (3.6-5.2) mmol/L Chloride 103 (100-108) mmol/L Carbon Dioxide 31 (21-32) mmol/L Anion Gap 12.4 (5.0-14.0) mmol/L BUN 33 H (7-18) mg/dL Creatinine 1.7 H (0.8-1.3) mg/dL Est Cr Clr Drug Dosing 35.78 mL/min Estimated GFR (MDRD) 39 L (>60) Glucose 163 H (74-106) mg/dL POC Glucose 121 H 219 H (74-106) mg/dL Calcium 8.4 L (8.5-10.1) mg/dL 10/21/21 10/21/21 Range/Units 07:14 11:14 Sodium (140-148) mmol/L Potassium (3.6-5.2) mmol/L Chloride (100-108) mmol/L Carbon Dioxide (21-32) mmol/L Anion Gap (5.0-14.0) mmol/L BUN (7-18) mg/dL Creatinine (0.8-1.3) mg/dL Est Cr Clr Drug Dosing mL/min Estimated GFR (MDRD) (>60) Glucose (74-106) mg/dL POC Glucose 135 H 146 H (74-106) mg/dL Calcium (8.5-10.1) mg/dL Result Diagrams: 10/18/21 04:10 10/21/21 04:20 Sepsis Event Note - Evaluation Sepsis Screening Result: No Definite Risk - Focused Exam Vital Signs: Vital Signs Temp Pulse Resp BP Pulse Ox 10/21/21 10:58 95.1 F L 74 18 121/71 100 10/21/21 07:00 95.6 F L 80 18 100/66 95 10/21/21 03:32 96.6 F L 74 20 105/66 97 - Problem List Review Problem List Initiated/Reviewed/Updated: Yes - My Orders Last 24 Hours: My Active Orders 10/20/21 16:00 Sodium Chloride 0.9% [Normal Saline] 1,000 ml IV ASDIRECTED 10/20/21 17:00 Spironolactone [Aldactone] 25 mg PO DAILY hydroCHLOROthiazide 25 mg PO DAILY 10/21/21 10:00 Enoxaparin [Lovenox] 40 mg SUBCUT Q24H 10/21/21 12:27 OT Evaluation and Treatment [CONS] Routine PT Evaluation and Treatment [CONS] Routine 10/21/21 14:45 Potassium Chloride [Klor-Con M20] 20 meq PO DAILY 10/21/21 16:30 GLUCOSE POC LAB TO COLLECT JPM [POC] QIDACANDBED 10/21/21 21:00 GLUCOSE POC LAB TO COLLECT JPM [POC] QIDACANDBED 10/22/21 07:30 GLUCOSE POC LAB TO COLLECT JPM [POC] QIDACANDBED 10/22/21 11:30 GLUCOSE POC LAB TO COLLECT JPM [POC] QIDACANDBED 10/22/21 16:30 GLUCOSE POC LAB TO COLLECT JPM [POC] QIDACANDBED 10/22/21 21:00 GLUCOSE POC LAB TO COLLECT JPM [POC] QIDACANDBED 10/23/21 07:30 GLUCOSE POC LAB TO COLLECT JPM [POC] QIDACANDBED 10/23/21 11:30 GLUCOSE POC LAB TO COLLECT JPM [POC] QIDACANDBED 10/23/21 16:30 GLUCOSE POC LAB TO COLLECT JPM [POC] QIDACANDBED 10/23/21 21:00 GLUCOSE POC LAB TO COLLECT JPM [POC] QIDACANDBED - Plan Plan:: Assessment/Plan: #1. CHF with fluid retention. Output in the last 24 is improved and creat is 1.7 from 2.0. Will continue IV fluids to improve kidney functioin. #2. DMII. Will adjust and treat blood sugars. Elevated this morning after fruit. #3. Arthrosclerosis arteries diffuse. Will check arterial flow in the left leg. #4. ASHD: Chronic #5. BKA right leg.] #6. History of HTN: #7. History of HLD
[2021-10-21] MEDS: Potassium Chloride 20 MEQ Tab.ER PO SCH (16:09)
[2021-10-21] MEDS: cefTRIAXone 1 GM in Sodium Chloride 0.9% 50 ML IV SCH (21:21)
[2021-10-21] MEDS ORDERED: Furosemide 20 MG/2 ML VIAL IVPUSH ONE (21:46)
[2021-10-22] MEDS: Bacitracin Oint 28.35 GM Tube TOP SCH ×2 (08:12→20:12)
[2021-10-22] MEDS: Pantoprazole 40 MG Tab.CR PO SCH ×2 (08:12→16:44)
[2021-10-22] MEDS: Aspirin 81 MG Tab.EC PO SCH (08:12)
[2021-10-22] MEDS: glipiZIDE 5 MG Tab.ER PO SCH ×2 (08:13→16:44)
[2021-10-22] MEDS: Potassium Chloride 20 MEQ Tab.ER PO SCH (08:13)
[2021-10-22] MEDS: Hydrochlorothiazide 25 MG Tab PO SCH (08:14)
[2021-10-22] MEDS: Spironolactone 25 MG Tab PO SCH (08:14)
[2021-10-22] MEDS: Atenolol 25 MG Tab PO SCH (08:15)
[2021-10-22] MEDS ORDERED: Sodium Chloride 0.9% 1,000 ML IV SCH (08:30)
[2021-10-22] MEDS ORDERED: Furosemide 20 MG Tab PO ONE ×2 (08:35→13:00)
[2021-10-22] MEDS: Enoxaparin 40 MG/0.4 ML Syringe SUBCUT SCH (09:40)
[2021-10-22] MEDS: methylPREDNISolone Sodium Succinate 40 MG/1 ML SDV IV SCH ×2 (09:40→13:44)
--- NOTE | 2021-10-22 13:33 | PCM.PN ---
- General Info Date of Service: 10/22/21 Functional Status: Reports: Pain Controlled - Review of Systems General: Reports: Weakness HEENT: Reports: No Symptoms Pulmonary: Reports: Shortness of Breath Cardiovascular: Reports: No Symptoms Gastrointestinal: Reports: No Symptoms Genitourinary: Reports: No Symptoms Musculoskeletal: Reports: Leg Pain Neurological: Reports: Difficulty Walking, Weakness, Gait Disturbance - Patient Data Vitals - Most Recent: Last Vital Signs Temp 98.3 F 10/22/21 10:56 Pulse 84 10/22/21 10:56 Resp 16 10/22/21 10:56 BP 132/72 10/22/21 10:56 Pulse Ox 97 10/22/21 10:56 Weight - Most Recent: 202 lb 6.15 oz I&O - Last 24 Hours: Intake & Output 10/21/21 10/22/21 10/22/21 22:59 06:59 14:59 Intake Total 2666 Output Total 1375 1600 Balance 1291 -1600 Lab Results Last 24 Hours: Laboratory Results - last 24 hr 10/21/21 10/21/21 10/22/21 Range/Units 16:25 21:02 05:30 WBC (4.5-11.0) K/uL RBC (4.30-5.90) M/uL Hgb (12.0-15.0) g/dL Hct (40.0-54.0) % MCV (80-98) fL MCH (27-31) pg MCHC (32-36) % Plt Count (150-400) K/uL Neut % (Auto) (36-66) % Lymph % (Auto) (24-44) % Garden % (Auto) (2-6) % Eos % (Auto) (2-4) % Baso % (Auto) (0-1) % Sodium 144 (140-148) mmol/L Potassium 5.1 (3.6-5.2) mmol/L Chloride 105 (100-108) mmol/L Carbon Dioxide 33 H (21-32) mmol/L Anion Gap 11.1 (5.0-14.0) mmol/L BUN 29 H (7-18) mg/dL Creatinine 1.5 H (0.8-1.3) mg/dL Est Cr Clr Drug Dosing 40.66 mL/min Estimated GFR (MDRD) 45 L (>60) Glucose 139 H (74-106) mg/dL POC Glucose 94 115 H (74-106) mg/dL Calcium 9.1 (8.5-10.1) mg/dL 10/22/21 10/22/21 10/22/21 Range/Units 05:30 07:18 11:17 WBC 5.2 (4.5-11.0) K/uL RBC 5.77 (4.30-5.90) M/uL Hgb 14.9 (12.0-15.0) g/dL Hct 48.0 (40.0-54.0) % MCV 83 (80-98) fL MCH 26 L (27-31) pg MCHC 31 L (32-36) % Plt Count 121 L (150-400) K/uL Neut % (Auto) 73.1 H (36-66) % Lymph % (Auto) 14.6 L (24-44) % Garden % (Auto) 11.7 H (2-6) % Eos % (Auto) 0.4 L (2-4) % Baso % (Auto) 0.2 (0-1) % Sodium (140-148) mmol/L Potassium (3.6-5.2) mmol/L Chloride (100-108) mmol/L Carbon Dioxide (21-32) mmol/L Anion Gap (5.0-14.0) mmol/L BUN (7-18) mg/dL Creatinine (0.8-1.3) mg/dL Est Cr Clr Drug Dosing mL/min Estimated GFR (MDRD) (>60) Glucose (74-106) mg/dL POC Glucose 114 H 146 H (74-106) mg/dL Calcium (8.5-10.1) mg/dL Med Orders - Current: Current Medications Acetaminophen/Codeine Phosphate (Acetaminophen/Codeine 300-30 Mg Tab) 1 tab PO Q6H PRN PRN Reason: Pain Last Admin: 10/20/21 08:03 Dose: 1 tab Documented by: Aspirin (Aspirin 81 Mg Tab.Ec) 81 mg PO DAILY [facility] Last Admin: 10/22/21 08:12 Dose: 81 mg Documented by: Atenolol (Atenolol 25 Mg Tab) 25 mg PO DAILY [facility] Last Admin: 10/22/21 08:15 Dose: Not Given Documented by: Bacitracin (Bacitracin Oint 28.35 Gm Tube) 0 gm TOP BID [facility] Last Admin: 10/22/21 08:12 Dose: 1 applic Documented by: Diphenhydramine HCl (Diphenhydramine 50 Mg/Ml Sdv) 50 mg IV ONETIME ONE Stop: 10/22/21 14:01 Enoxaparin Sodium (Enoxaparin 40 Mg/0.4 Ml Syringe) 40 mg SUBCUT Q24H [facility] Last Admin: 10/22/21 09:40 Dose: 40 mg Documented by: Glipizide (Glipizide 5 Mg Tab.Er) 10 mg PO BIDMEALS [facility] Last Admin: 10/22/21 08:13 Dose: 10 mg Documented by: Guaifenesin/Dextromethorphan (Guaifenesin/Dextromethorphan 100-10 Mg/5 Ml Soln 10 Ml Cup) 10 ml PO Q4H PRN PRN Reason: Cough Hydrochlorothiazide (Hydrochlorothiazide 25 Mg Tab) 25 mg PO DAILY [facility] Last Admin: 10/22/21 08:14 Dose: 25 mg Documented by: Ceftriaxone Sodium 1 gm/ (Sodium Chloride) 50 mls @ 100 mls/hr IV Q24H [facility] Last Admin: 10/21/21 21:21 Dose: 100 mls/hr Documented by: Sodium Chloride (Normal Saline) 1,000 mls @ 75 mls/hr IV ASDIRECTED [facility] Methylprednisolone Sodium Succinate (Methylprednisolone Sodium Succinate 40 Mg/1 Ml Sdv) 40 mg IV Q4H [facility] Stop: 10/22/21 14:01 Last Admin: 10/22/21 09:40 Dose: 40 mg Documented by: Pantoprazole Sodium (Pantoprazole 40 Mg Tab.Cr) 40 mg PO BIDAC [facility] Last Admin: 10/22/21 08:12 Dose: 40 mg Documented by: Sodium Chloride (Sodium Chloride 0.9% 10 Ml Syringe) 10 ml FLUSH ASDIRECTED PRN PRN Reason: Keep Vein Open Spironolactone (Spironolactone 25 Mg Tab) 25 mg PO DAILY [facility] Last Admin: 10/22/21 08:14 Dose: 25 mg Documented by: Tramadol HCl (Tramadol 50 Mg Tab) 50 mg PO Q6H PRN PRN Reason: Pain Last Admin: 10/17/21 16:27 Dose: 50 mg Documented by: Discontinued Medications Aspirin (Aspirin 325 Mg Tab.Ec) 325 mg PO ONETIME ONE Stop: 10/20/21 15:31 Last Admin: 10/20/21 15:35 Dose: 325 mg Documented by: Ceftriaxone Sodium (Ceftriaxone 1 Gm Advvial) Confirm Administered Dose 2 gm IV .STK-MED ONE Stop: 10/17/21 20:59 Last Admin: 10/17/21 21:06 Dose: Not Given Documented by: Diphenhydramine HCl (Diphenhydramine 50 Mg/Ml Sdv) 25 mg IVPUSH ONETIME ONE Stop: 10/17/21 20:01 Last Admin: 10/17/21 20:39 Dose: 25 mg Documented by: Diphenhydramine HCl (Diphenhydramine 50 Mg/Ml Sdv) 25 mg IVPUSH ONETIME ONE Stop: 10/18/21 08:01 Enoxaparin Sodium (Enoxaparin 30 Mg/0.3 Ml Syringe) 30 mg SUBCUT Q24H [facility] Last Admin: 10/20/21 09:06 Dose: 30 mg Documented by: Furosemide (Furosemide 20 Mg/2 Ml Vial) 20 mg IVPUSH ONETIME ONE Stop: 10/16/21 21:11 Last Admin: 10/16/21 22:01 Dose: 20 mg Documented by: Furosemide (Furosemide 20 Mg/2 Ml Vial) 20 mg IVPUSH Q6H [facility] Last Admin: 10/18/21 00:02 Dose: 20 mg Documented by: Furosemide (Furosemide 20 Mg Tab) 20 mg PO ONETIME ONE Stop: 10/20/21 16:31 Last Admin: 10/20/21 16:11 Dose: 20 mg Documented by: Furosemide (Furosemide 20 Mg/2 Ml Vial) 20 mg IVPUSH ONETIME ONE Stop: 10/21/21 21:47 Last Admin: 10/21/21 22:28 Dose: 20 mg Documented by: Furosemide (Furosemide 20 Mg Tab) 20 mg PO ONETIME ONE Stop: 10/22/21 08:36 Last Admin: 10/22/21 09:40 Dose: 20 mg Documented by: Furosemide (Furosemide 20 Mg Tab) 20 mg PO ONETIME ONE Stop: 10/22/21 13:01 Hydrochlorothiazide (Hydrochlorothiazide 25 Mg Tab) 25 mg PO DAILY [facility] Last Admin: 10/18/21 11:11 Dose: Not Given Documented by: Ceftriaxone Sodium 2 gm/ (Sodium Chloride) 50 mls @ 100 mls/hr IV ONETIME ONE Stop: 10/17/21 21:12 Last Admin: 10/17/21 22:01 Dose: Not Given Documented by: Ceftriaxone Sodium 2 gm/ (Sodium Chloride) 50 mls @ 100 mls/hr IV ONETIME ONE Stop: 10/17/21 22:29 Last Admin: 10/17/21 22:14 Dose: 100 mls/hr Documented by: Sodium Chloride (Normal Saline) 1,000 mls @ 100 mls/hr IV ASDIRECTED [facility] Last Admin: 10/21/21 16:48 Dose: 100 mls/hr Documented by: Lidocaine HCl (Lidocaine 2% Jelly 10 Ml Urojet) 10 ml MUCMEM ONETIME ONE Stop: 10/16/21 21:48 Last Admin: 10/16/21 22:01 Dose: 10 ml Documented by: Methylprednisolone Sodium Succinate (Methylprednisolone Sodium Succinate 40 Mg/1 Ml Sdv) 80 mg IVPUSH ONETIME ONE Stop: 10/17/21 20:01 Last Admin: 10/17/21 20:41 Dose: 80 mg Documented by: Methylprednisolone Sodium Succinate (Methylprednisolone Sodium Succinate 40 Mg/1 Ml Sdv) 80 mg IVPUSH ONETIME ONE Stop: 10/18/21 08:01 Metolazone (Metolazone 2.5 Mg Tab) 5 mg PO ONETIME ONE Stop: 10/16/21 21:49 Last Admin: 10/16/21 22:37 Dose: 5 mg Documented by: Potassium Chloride (Potassium Chloride 20 Meq Tab.Er) 20 meq PO DAILY [facility] Last Admin: 10/22/21 08:13 Dose: 20 meq Documented by: Spironolactone (Spironolactone 25 Mg Tab) 25 mg PO DAILY [facility] Last Admin: 10/18/21 11:11 Dose: Not Given Documented by: - Exam Urinary Catheter Total Time: 5Days 12Hours General: Alert, Oriented HEENT: Pupils Equal, Pupils Reactive, EOMI, Mucous Membr. Moist/[place] Neck: Supple Lungs: Clear to Auscultation, Normal Respiratory Effort Cardiovascular: Regular Rate GI/Abdominal Exam: Soft (Male) Exam: Other (edema penis and scrotum) Extremities: Pedal Edema, Leg Pain, Redness Peripheral Pulses: 1+: Radial (L), Radial (R) Psy/Mental Status: Alert - Patient Data Lab Results Last 24 hrs: Laboratory Results - last 24 hr 10/21/21 10/21/21 10/22/21 Range/Units 16:25 21:02 05:30 WBC (4.5-11.0) K/uL RBC (4.30-5.90) M/uL Hgb (12.0-15.0) g/dL Hct (40.0-54.0) % MCV (80-98) fL MCH (27-31) pg MCHC (32-36) % Plt Count (150-400) K/uL Neut % (Auto) (36-66) % Lymph % (Auto) (24-44) % Garden % (Auto) (2-6) % Eos % (Auto) (2-4) % Baso % (Auto) (0-1) % Sodium 144 (140-148) mmol/L Potassium 5.1 (3.6-5.2) mmol/L Chloride 105 (100-108) mmol/L Carbon Dioxide 33 H (21-32) mmol/L Anion Gap 11.1 (5.0-14.0) mmol/L BUN 29 H (7-18) mg/dL Creatinine 1.5 H (0.8-1.3) mg/dL Est Cr Clr Drug Dosing 40.66 mL/min Estimated GFR (MDRD) 45 L (>60) Glucose 139 H (74-106) mg/dL POC Glucose 94 115 H (74-106) mg/dL Calcium 9.1 (8.5-10.1) mg/dL 10/22/21 10/22/21 10/22/21 Range/Units 05:30 07:18 11:17 WBC 5.2 (4.5-11.0) K/uL RBC 5.77 (4.30-5.90) M/uL Hgb 14.9 (12.0-15.0) g/dL Hct 48.0 (40.0-54.0) % MCV 83 (80-98) fL MCH 26 L (27-31) pg MCHC 31 L (32-36) % Plt Count 121 L (150-400) K/uL Neut % (Auto) 73.1 H (36-66) % Lymph % (Auto) 14.6 L (24-44) % Garden % (Auto) 11.7 H (2-6) % Eos % (Auto) 0.4 L (2-4) % Baso % (Auto) 0.2 (0-1) % Sodium (140-148) mmol/L Potassium (3.6-5.2) mmol/L Chloride (100-108) mmol/L Carbon Dioxide (21-32) mmol/L Anion Gap (5.0-14.0) mmol/L BUN (7-18) mg/dL Creatinine (0.8-1.3) mg/dL Est Cr Clr Drug Dosing mL/min Estimated GFR (MDRD) (>60) Glucose (74-106) mg/dL POC Glucose 114 H 146 H (74-106) mg/dL Calcium (8.5-10.1) mg/dL Result Diagrams: 10/22/21 05:30 10/22/21 05:30 Sepsis Event Note - Evaluation Sepsis Screening Result: No Definite Risk - Focused Exam Vital Signs: Vital Signs Temp Pulse Resp BP Pulse Ox 10/22/21 10:56 98.3 F 84 16 132/72 97 10/22/21 07:00 97.4 F 78 16 115/75 96 10/22/21 05:07 95 F L 81 18 116/79 - Problem List Review Problem List Initiated/Reviewed/Updated: Yes - My Orders Last 24 Hours: My Active Orders 10/21/21 21:47 Convert IV to Saline Lock [OM.PC] Routine 10/22/21 08:30 Sodium Chloride 0.9% [Normal Saline] 1,000 ml IV ASDIRECTED 10/22/21 10:00 methylPREDNISolone Sod Succ [Solu-MEDROL] 40 mg IV Q4H 10/22/21 14:00 diphenhydrAMINE [Benadryl] 50 mg IV ONETIME ONE 10/22/21 15:30 Ang Abdomen Aorta w Bi Runoff [CT] Routine 10/22/21 16:30 GLUCOSE POC LAB TO COLLECT JPM [POC] QIDACANDBED 10/22/21 21:00 GLUCOSE POC LAB TO COLLECT JPM [POC] QIDACANDBED 10/23/21 07:30 GLUCOSE POC LAB TO COLLECT JPM [POC] QIDACANDBED 10/23/21 11:30 GLUCOSE POC LAB TO COLLECT JPM [POC] QIDACANDBED 10/23/21 16:30 GLUCOSE POC LAB TO COLLECT JPM [POC] QIDACANDBED 10/23/21 21:00 GLUCOSE POC LAB TO COLLECT JPM [POC] QIDACANDBED - Plan Plan:: Assessment/Plan: #1. CHF with fluid retention. Output in the last 24 is improved and creat is 1.5. Will continue IV fluids to improve kidney functioin. #2. DMII. Will adjust and treat blood sugars. Elevated this morning after fruit. #3. Arthrosclerosis arteries diffuse. Will check arterial flow in the left leg CTA today. #4. ASHD: Chronic #5. BKA right leg.] #6. History of HTN: #7. History of HLD
[2021-10-22] MEDS ORDERED: diphenhydrAMINE 50 MG/ML SDV IV ONE (14:00)
[2021-10-22] MEDS ORDERED: Iopamidol 755 Mg/ML 100 ML Bottle IV SCH (17:15)
[2021-10-22] MEDS ORDERED: Sodium Chloride 0.9% 100 ML IV SCH (17:15)
--- NOTE | 2021-10-22 17:36 | CRLCT ---
For Patients: As a result of the 21st Century Cures Act, medical imaging exams and procedure reports are released immediately into your electronic medical record. You may view this report before your referring provider. If you have questions, please contact your health care provider. CT ANGIOGRAM ABDOMEN AND PELVIS WITH RUNOFFS WITH IV CONTRAST COMPARISON: CT abdomen without intravenous contrast 10/18/[address] abdomen without intravenous contrast 08/25/2018. CLINICAL HISTORY: 81-year-old male with left leg redness. TECHNIQUE: Following the administration of intravenous contrast, contiguous axial images were obtained through the abdomen, pelvis and bilateral lower extremities in the early arterial phase. Two-dimensional sagittal and coronal reformatted sequences were submitted. 100 cc Isovue 370. FINDINGS: Abdomen: There are bilateral pleural effusions. These are moderate. There is minimal adjacent atelectasis. No concerning pulmonary nodules. No pericardial effusion. No concerning liver lesions. There is an area of low attenuation near the falciform ligament consistent with focal fatty infiltration. Calcified debris in the gallbladder consistent with gallstones. The gallbladder is otherwise unremarkable. No intra- or extrahepatic biliary duct dilatation. Adrenal glands, kidneys, pancreas, and spleen appear unchanged. There is a small amount of fluid around the spleen and in the retroperitoneum. Small amount of fluid near the right kidney. Overall, this is not significantly changed. No acute bony lytic or blastic lesions. Pelvis: There is a Pena catheter in the urinary bladder which is minimally distended. There is air in the non-dependent portion, consistent with the presence of a Pena catheter. Prostate gland appears prominent. Seminal vesicles are symmetric. There are calcified vas deferens. Calcified phleboliths. Small amount of free fluid in the pelvis. Diffuse edema through the subcutaneous fat in the pelvis. No acute bony lytic or blastic lesions. Large amount of fluid in the scrotum. Lower extremities: There are changes related to right below-knee amputation. Diffuse edema in the subcutaneous tissues throughout both lower extremities as well as intramuscular edema. Calcifications in the subcutaneous tissues in the left lower leg. Vasculature: Abdominal aorta is non-aneurysmal. There is some ectasia of the thoracic aorta with some mural thrombus. It measures up to 2.7 cm. The celiac artery origin is patent. Calcified branches of the celiac artery are noted. The superior mesenteric artery is patent with a mild stenosis proximally. There are two right renal arteries which appear patent. Mild to moderate narrowing at the proximal left renal artery. Inferior mesenteric artery origin is patent. Heavily calcified common iliac arteries. The right common iliac artery appears to have been stented and this appears patent. Bilateral internal iliac arteries are heavily calcified. The origin of the left is likely occluded. The bilateral external iliac arteries are patent. There is a mild narrowing of the distal right external iliac artery. Right lower extremity: Heavily calcified common femoral artery, patent. Deep femoral artery is patent with some heavy calcifications. Superficial femoral artery has several focal moderate stenoses in the proximal to mid-portion. It is nearly occluded above the adductor hiatus and there is a high grade stenosis at the adductor hiatus. Poor filling of the popliteal artery which may be occluded. Poor filling may be related to timing of image acquisition and not a thrombus. Left lower extremity: Complex plaque in the left common femoral artery with a mild stenosis. Atherosclerotic disease in the deep femoral artery which is patent. The superficial femoral artery is diminutive with a focal moderate stenosis proximally. There is somewhat poor opacification. Prominent collateral near the adductor hiatus suggests a high grade stenosis in that area. Popliteal artery is diminutive with scattered disease. Anterior tibial artery is diseased and the kendrick are heavily calcified. Difficult to ascertain patency. The run-off vessels appear heavily calcified and difficult to ascertain the patency. IMPRESSION: 1. Aorta/inflow: a) No evidence of abdominal aortic aneurysm. b) Patent right common/external iliac artery stent. c) No significant inflow disease other than diseased internal iliac arteries. 2. Right lower extremity: Changes related to below-knee amputation. Scattered disease along the superficial femoral artery with areas of near total occlusion of the distal SFA/adductor hiatus. Poor opacification popliteal artery. 3. Left lower extremity: Atherosclerotic plaque in the common femoral artery is unlikely to be hemodynamically-significant. Scattered disease along the superficial femoral artery including focal areas of moderate and high grade stenosis. Popliteal artery and run-off vessels have poor opacification and are not fully evaluated. Duplex ultrasound of the lower extremities could be considered. 4. Moderate bilateral pleural effusions. Diffuse anasarca with a small amount of abdominal ascites and pelvic fluid. 5. 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 6. Cholelithiasis without evidence of cholecystitis. Please note that all CT scans at this facility use dose modulation, iterative reconstruction and/or weight-based dosing when appropriate to reduce radiation dose to as low as reasonably achievable. Thad Glass M.D. [email or web address] AZAEL/Dictated by: Thad Glass MD @ 10/23/2021 4:44:00 PM (Electronically Signed)
[2021-10-22] MEDS: cefTRIAXone 1 GM in Sodium Chloride 0.9% 50 ML IV SCH (20:21)
[2021-10-23] MEDS: Pantoprazole 40 MG Tab.CR PO SCH ×2 (07:23→17:13)
[2021-10-23] MEDS: glipiZIDE 5 MG Tab.ER PO SCH ×2 (07:23→17:13)
[2021-10-23] MEDS: Spironolactone 25 MG Tab PO SCH (08:46)
[2021-10-23] MEDS: Aspirin 81 MG Tab.EC PO SCH (08:46)
[2021-10-23] MEDS: Atenolol 25 MG Tab PO SCH (08:46)
[2021-10-23] MEDS: Hydrochlorothiazide 25 MG Tab PO SCH (08:46)
[2021-10-23] MEDS: Bacitracin Oint 28.35 GM Tube TOP SCH ×2 (08:46→20:44)
[2021-10-23] MEDS: Enoxaparin 40 MG/0.4 ML Syringe SUBCUT SCH (09:45)
--- NOTE | 2021-10-23 15:54 | PCM.PN ---
- General Info Date of Service: 10/23/21 Functional Status: Reports: Pain Controlled - Review of Systems General: Reports: Weakness, Fatigue HEENT: Reports: No Symptoms Pulmonary: Reports: Shortness of Breath, Cough Cardiovascular: Reports: No Symptoms Gastrointestinal: Reports: No Symptoms Genitourinary: Reports: No Symptoms Musculoskeletal: Reports: Leg Pain, Foot Pain Neurological: Reports: No Symptoms, Difficulty Walking, Weakness Psychiatric: Reports: No Symptoms - Patient Data Vitals - Most Recent: Last Vital Signs Temp 96.1 F L 10/23/21 15:00 Pulse 96 10/23/21 10:49 Resp 16 10/23/21 15:00 BP 113/64 10/23/21 15:00 Pulse Ox 97 10/23/21 10:49 Weight - Most Recent: 195 lb 8.8 oz I&O - Last 24 Hours: Intake & Output 10/23/21 10/23/21 10/23/21 06:59 14:59 22:59 Intake Total 1347 760 Output Total 1000 Balance 347 760 Lab Results Last 24 Hours: Laboratory Results - last 24 hr 10/22/21 10/22/21 10/23/21 Range/Units 16:41 20:55 07:34 WBC (4.5-11.0) K/uL RBC (4.30-5.90) M/uL Hgb (12.0-15.0) g/dL Hct (40.0-54.0) % MCV (80-98) fL MCH (27-31) pg MCHC (32-36) % Plt Count (150-400) K/uL Neut % (Auto) (36-66) % Lymph % (Auto) (24-44) % [place] % (Auto) (2-6) % Eos % (Auto) (2-4) % Baso % (Auto) (0-1) % Sodium (140-148) mmol/L Potassium (3.6-5.2) mmol/L Chloride (100-108) mmol/L Carbon Dioxide (21-32) mmol/L Anion Gap (5.0-14.0) mmol/L BUN (7-18) mg/dL Creatinine (0.8-1.3) mg/dL Est Cr Clr Drug Dosing mL/min Estimated GFR (MDRD) (>60) Glucose (74-106) mg/dL POC Glucose 170 H 276 H 220 H (74-106) mg/dL Calcium (8.5-10.1) mg/dL Total Bilirubin (0.2-1.0) mg/dL AST (15-37) U/L ALT (12-78) U/L Alkaline Phosphatase (46-116) U/L Total Protein (6.4-8.2) g/dL Albumin (3.4-5.0) g/dL Globulin (2.3-3.5) g/dL Albumin/Globulin Ratio (1.2-2.2) 10/23/21 10/23/21 10/23/21 Range/Units 09:41 09:41 11:25 WBC 8.8 (4.5-11.0) K/uL RBC 5.90 (4.30-5.90) M/uL Hgb 15.2 H (12.0-15.0) g/dL Hct 49.1 (40.0-54.0) % MCV 83 (80-98) fL MCH 26 L (27-31) pg MCHC 31 L (32-36) % Plt Count 175 (150-400) K/uL Neut % (Auto) 84.3 H (36-66) % Lymph % (Auto) 6.8 L (24-44) % [place] % (Auto) 8.9 H (2-6) % Eos % (Auto) 0.0 L (2-4) % Baso % (Auto) 0.0 (0-1) % Sodium 140 (140-148) mmol/L Potassium 4.3 (3.6-5.2) mmol/L Chloride 101 (100-108) mmol/L Carbon Dioxide 31 (21-32) mmol/L Anion Gap 8.4 (5.0-14.0) mmol/L BUN 28 H (7-18) mg/dL Creatinine 1.7 H (0.8-1.3) mg/dL Est Cr Clr Drug Dosing 35.87 mL/min Estimated GFR (MDRD) 39 L (>60) Glucose 284 H (74-106) mg/dL POC Glucose 251 H (74-106) mg/dL Calcium 8.9 (8.5-10.1) mg/dL Total Bilirubin 0.7 (0.2-1.0) mg/dL AST 29 (15-37) U/L ALT 29 (12-78) U/L Alkaline Phosphatase 82 (46-116) U/L Total Protein 6.5 (6.4-8.2) g/dL Albumin 3.5 (3.4-5.0) g/dL Globulin 3.0 (2.3-3.5) g/dL Albumin/Globulin Ratio 1.2 (1.2-2.2) Med Orders - Current: Current Medications Acetaminophen/Codeine Phosphate (Acetaminophen/Codeine 300-30 Mg Tab) 1 tab PO Q6H PRN PRN Reason: Pain Last Admin: 10/20/21 08:03 Dose: 1 tab Documented by: Aspirin (Aspirin 81 Mg Tab.Ec) 81 mg PO DAILY [facility] Last Admin: 10/23/21 08:46 Dose: 81 mg Documented by: Atenolol (Atenolol 25 Mg Tab) 25 mg PO DAILY [facility] Last Admin: 10/23/21 08:46 Dose: 25 mg Documented by: Bacitracin (Bacitracin Oint 28.35 Gm Tube) 0 gm TOP BID [facility] Last Admin: 10/23/21 08:46 Dose: 1 applic Documented by: Enoxaparin Sodium (Enoxaparin 40 Mg/0.4 Ml Syringe) 40 mg SUBCUT Q24H [facility] Last Admin: 10/23/21 09:45 Dose: 40 mg Documented by: Glipizide (Glipizide 5 Mg Tab.Er) 10 mg PO BIDMEALS [facility] Last Admin: 10/23/21 07:23 Dose: 10 mg Documented by: Guaifenesin/Dextromethorphan (Guaifenesin/Dextromethorphan 100-10 Mg/5 Ml Soln 10 Ml Cup) 10 ml PO Q4H PRN PRN Reason: Cough Hydrochlorothiazide (Hydrochlorothiazide 25 Mg Tab) 25 mg PO DAILY [facility] Last Admin: 10/23/21 08:46 Dose: 25 mg Documented by: Ceftriaxone Sodium 1 gm/ (Sodium Chloride) 50 mls @ 100 mls/hr IV Q24H [facility] Last Admin: 10/22/21 20:21 Dose: 100 mls/hr Documented by: Sodium Chloride (Normal Saline) 1,000 mls @ 75 mls/hr IV ASDIRECTED [facility] Last Admin: 10/22/21 20:21 Dose: 75 mls/hr Documented by: Pantoprazole Sodium (Pantoprazole 40 Mg Tab.Cr) 40 mg PO BIDAC [facility] Last Admin: 10/23/21 07:23 Dose: 40 mg Documented by: Sodium Chloride (Sodium Chloride 0.9% 10 Ml Syringe) 10 ml FLUSH ASDIRECTED PRN PRN Reason: Keep Vein Open Last Admin: 10/22/21 17:16 Dose: 10 ml Documented by: Spironolactone (Spironolactone 25 Mg Tab) 25 mg PO DAILY [facility] Last Admin: 10/23/21 08:46 Dose: 25 mg Documented by: Tramadol HCl (Tramadol 50 Mg Tab) 50 mg PO Q6H PRN PRN Reason: Pain Last Admin: 10/17/21 16:27 Dose: 50 mg Documented by: Discontinued Medications Aspirin (Aspirin 325 Mg Tab.Ec) 325 mg PO ONETIME ONE Stop: 10/20/21 15:31 Last Admin: 10/20/21 15:35 Dose: 325 mg Documented by: Ceftriaxone Sodium (Ceftriaxone 1 Gm Advvial) Confirm Administered Dose 2 gm IV .STK-MED ONE Stop: 10/17/21 20:59 Last Admin: 10/17/21 21:06 Dose: Not Given Documented by: Diphenhydramine HCl (Diphenhydramine 50 Mg/Ml Sdv) 25 mg IVPUSH ONETIME ONE Stop: 10/17/21 20:01 Last Admin: 10/17/21 20:39 Dose: 25 mg Documented by: Diphenhydramine HCl (Diphenhydramine 50 Mg/Ml Sdv) 25 mg IVPUSH ONETIME ONE Stop: 10/18/21 08:01 Diphenhydramine HCl (Diphenhydramine 50 Mg/Ml Sdv) 50 mg IV ONETIME ONE Stop: 10/22/21 14:01 Last Admin: 10/22/21 13:44 Dose: 50 mg Documented by: Enoxaparin Sodium (Enoxaparin 30 Mg/0.3 Ml Syringe) 30 mg SUBCUT Q24H [facility] Last Admin: 10/20/21 09:06 Dose: 30 mg Documented by: Furosemide (Furosemide 20 Mg/2 Ml Vial) 20 mg IVPUSH ONETIME ONE Stop: 10/16/21 21:11 Last Admin: 10/16/21 22:01 Dose: 20 mg Documented by: Furosemide (Furosemide 20 Mg/2 Ml Vial) 20 mg IVPUSH Q6H [facility] Last Admin: 10/18/21 00:02 Dose: 20 mg Documented by: Furosemide (Furosemide 20 Mg Tab) 20 mg PO ONETIME ONE Stop: 10/20/21 16:31 Last Admin: 10/20/21 16:11 Dose: 20 mg Documented by: Furosemide (Furosemide 20 Mg/2 Ml Vial) 20 mg IVPUSH ONETIME ONE Stop: 10/21/21 21:47 Last Admin: 10/21/21 22:28 Dose: 20 mg Documented by: Furosemide (Furosemide 20 Mg Tab) 20 mg PO ONETIME ONE Stop: 10/22/21 08:36 Last Admin: 10/22/21 09:40 Dose: 20 mg Documented by: Furosemide (Furosemide 20 Mg Tab) 20 mg PO ONETIME ONE Stop: 10/22/21 13:01 Last Admin: 10/22/21 13:44 Dose: 20 mg Documented by: Hydrochlorothiazide (Hydrochlorothiazide 25 Mg Tab) 25 mg PO DAILY [facility] Last Admin: 10/18/21 11:11 Dose: Not Given Documented by: Ceftriaxone Sodium 2 gm/ (Sodium Chloride) 50 mls @ 100 mls/hr IV ONETIME ONE Stop: 10/17/21 21:12 Last Admin: 10/17/21 22:01 Dose: Not Given Documented by: Ceftriaxone Sodium 2 gm/ (Sodium Chloride) 50 mls @ 100 mls/hr IV ONETIME ONE Stop: 10/17/21 22:29 Last Admin: 10/17/21 22:14 Dose: 100 mls/hr Documented by: Sodium Chloride (Normal Saline) 1,000 mls @ 100 mls/hr IV ASDIRECTED [facility] Last Admin: 10/21/21 16:48 Dose: 100 mls/hr Documented by: Sodium Chloride (Normal Saline) 100 mls @ 3 mls/sec IV ASDIRECTED [facility] Stop: 10/22/21 17:16 Last Admin: 10/22/21 17:16 Dose: 3 mls/sec Documented by: Iopamidol (Iopamidol 755 Mg/Ml 100 Ml Bottle) 100 ml IV . DIRECTED [facility] Stop: 10/22/21 17:16 Last Admin: 10/22/21 17:16 Dose: 100 ml Documented by: Lidocaine HCl (Lidocaine 2% Jelly 10 Ml Urojet) 10 ml MUCMEM ONETIME ONE Stop: 10/16/21 21:48 Last Admin: 10/16/21 22:01 Dose: 10 ml Documented by: Methylprednisolone Sodium Succinate (Methylprednisolone Sodium Succinate 40 Mg/1 Ml Sdv) 80 mg IVPUSH ONETIME ONE Stop: 10/17/21 20:01 Last Admin: 10/17/21 20:41 Dose: 80 mg Documented by: Methylprednisolone Sodium Succinate (Methylprednisolone Sodium Succinate 40 Mg/1 Ml Sdv) 80 mg IVPUSH ONETIME ONE Stop: 10/18/21 08:01 Methylprednisolone Sodium Succinate (Methylprednisolone Sodium Succinate 40 Mg/1 Ml Sdv) 40 mg IV Q4H [facility] Stop: 10/22/21 14:01 Last Admin: 10/22/21 13:44 Dose: 40 mg Documented by: Metolazone (Metolazone 2.5 Mg Tab) 5 mg PO ONETIME ONE Stop: 10/16/21 21:49 Last Admin: 10/16/21 22:37 Dose: 5 mg Documented by: Potassium Chloride (Potassium Chloride 20 Meq Tab.Er) 20 meq PO DAILY [facility] Last Admin: 10/22/21 08:13 Dose: 20 meq Documented by: Spironolactone (Spironolactone 25 Mg Tab) 25 mg PO DAILY [facility] Last Admin: 10/18/21 11:11 Dose: Not Given Documented by: - Exam Urinary Catheter Total Time: 6Days 9Hours General: Alert, Oriented HEENT: Pupils Equal, Pupils Reactive, EOMI, Mucous Membr. Moist/[place] Neck: Supple Lungs: Clear to Auscultation, Normal Respiratory Effort Cardiovascular: Regular Rate, Regular Rhythm GI/Abdominal Exam: Normal Bowel Sounds, Soft, Non-Tender, No Organomegaly, No Distention, No Abnormal Bruit, No Mass, Pelvis Stable (Male) Exam: Other (scrotal edema and penile edema) Extremities: Normal Inspection, Normal Range of Motion, Non-Tender, No Pedal Edema, Normal Capillary Refill Peripheral Pulses: 1+: Radial (L), Radial (R) Skin: Warm, Dry, Intact Psy/Mental Status: Alert, Normal Affect, Normal Mood - Patient Data Lab Results Last 24 hrs: Laboratory Results - last 24 hr 10/22/21 10/22/21 10/23/21 Range/Units 16:41 20:55 07:34 WBC (4.5-11.0) K/uL RBC (4.30-5.90) M/uL Hgb (12.0-15.0) g/dL Hct (40.0-54.0) % MCV (80-98) fL MCH (27-31) pg MCHC (32-36) % Plt Count (150-400) K/uL Neut % (Auto) (36-66) % Lymph % (Auto) (24-44) % [place] % (Auto) (2-6) % Eos % (Auto) (2-4) % Baso % (Auto) (0-1) % Sodium (140-148) mmol/L Potassium (3.6-5.2) mmol/L Chloride (100-108) mmol/L Carbon Dioxide (21-32) mmol/L Anion Gap (5.0-14.0) mmol/L BUN (7-18) mg/dL Creatinine (0.8-1.3) mg/dL Est Cr Clr Drug Dosing mL/min Estimated GFR (MDRD) (>60) Glucose (74-106) mg/dL POC Glucose 170 H 276 H 220 H (74-106) mg/dL Calcium (8.5-10.1) mg/dL Total Bilirubin (0.2-1.0) mg/dL AST (15-37) U/L ALT (12-78) U/L Alkaline Phosphatase (46-116) U/L Total Protein (6.4-8.2) g/dL Albumin (3.4-5.0) g/dL Globulin (2.3-3.5) g/dL Albumin/Globulin Ratio (1.2-2.2) 10/23/21 10/23/21 10/23/21 Range/Units 09:41 09:41 11:25 WBC 8.8 (4.5-11.0) K/uL RBC 5.90 (4.30-5.90) M/uL Hgb 15.2 H (12.0-15.0) g/dL Hct 49.1 (40.0-54.0) % MCV 83 (80-98) fL MCH 26 L (27-31) pg MCHC 31 L (32-36) % Plt Count 175 (150-400) K/uL Neut % (Auto) 84.3 H (36-66) % Lymph % (Auto) 6.8 L (24-44) % [place] % (Auto) 8.9 H (2-6) % Eos % (Auto) 0.0 L (2-4) % Baso % (Auto) 0.0 (0-1) % Sodium 140 (140-148) mmol/L Potassium 4.3 (3.6-5.2) mmol/L Chloride 101 (100-108) mmol/L Carbon Dioxide 31 (21-32) mmol/L Anion Gap 8.4 (5.0-14.0) mmol/L BUN 28 H (7-18) mg/dL Creatinine 1.7 H (0.8-1.3) mg/dL Est Cr Clr Drug Dosing 35.87 mL/min Estimated GFR (MDRD) 39 L (>60) Glucose 284 H (74-106) mg/dL POC Glucose 251 H (74-106) mg/dL Calcium 8.9 (8.5-10.1) mg/dL Total Bilirubin 0.7 (0.2-1.0) mg/dL AST 29 (15-37) U/L ALT 29 (12-78) U/L Alkaline Phosphatase 82 (46-116) U/L Total Protein 6.5 (6.4-8.2) g/dL Albumin 3.5 (3.4-5.0) g/dL Globulin 3.0 (2.3-3.5) g/dL Albumin/Globulin Ratio 1.2 (1.2-2.2) Result Diagrams: 10/23/21 09:41 10/23/21 09:41 Sepsis Event Note - Evaluation Sepsis Screening Result: No Definite Risk - Focused Exam Vital Signs: Vital Signs Temp Pulse Pulse Resp BP BP Pulse Ox 10/23/21 15:00 96.1 F L 16 113/64 10/23/21 10:49 96.6 F L 96 18 117/65 97 10/23/21 08:46 99 112/74 10/23/21 08:01 96.4 F L 99 18 112/74 94 L - Problem List Review Problem List Initiated/Reviewed/Updated: Yes - My Orders Last 24 Hours: My Active Orders 10/23/21 16:30 GLUCOSE POC LAB TO COLLECT JPM [POC] QIDACANDBED 12/30/21 21:00 GLUCOSE POC LAB TO COLLECT JPM [POC] QIDACANDBED - Plan Plan:: Assessment/Plan: #1. CHF with fluid retention. Output in the last 24 is improved and creat is 1.7. Will continue IV fluids to improve kidney function. #2. DMII. Will adjust and treat blood sugars. Elevated this morning after fruit. #3. Arthrosclerosis arteries diffuse. Will check arterial flow in the left leg CTA today. There is severe disease of the left leg of the arteries. I have made a referral to see Dr. Lozada in [facility] a vascular specialist for treatment of the left leg Wednesday10/29/21 at 2 pm. Home when a ride is available. Will continue with therapy until dischargae. #4. ASHD: Chronic #5. BKA right leg. #6. History of HTN: #7. History of HLD
[2021-10-23] MEDS: cefTRIAXone 1 GM in Sodium Chloride 0.9% 50 ML IV SCH (20:46)
[2021-10-24 07:06] VITALS: BP 113/85
[2021-10-24] MEDS: glipiZIDE 5 MG Tab.ER PO SCH (07:23)
[2021-10-24] MEDS: Pantoprazole 40 MG Tab.CR PO SCH (07:23)
[2021-10-24] MEDS: Atenolol 25 MG Tab PO SCH (10:02)
[2021-10-24] MEDS: Bacitracin Oint 28.35 GM Tube TOP SCH (10:03)
[2021-10-24] MEDS: Enoxaparin 40 MG/0.4 ML Syringe SUBCUT SCH (10:03)
[2021-10-24] MEDS: Aspirin 81 MG Tab.EC PO SCH (10:03)
[2021-10-24] MEDS: Hydrochlorothiazide 25 MG Tab PO SCH (10:03)
[2021-10-24] MEDS: Spironolactone 25 MG Tab PO SCH (10:03)
[2021-10-24 10:04] VITALS: PULSE 91
--- NOTE | 2021-10-25 20:28 | PCM.PN ---
- General Info Date of Service: 10/24/21 Functional Status: Reports: Pain Controlled - Review of Systems General: Reports: Weakness HEENT: Reports: No Symptoms Pulmonary: Reports: Shortness of Breath, Cough Cardiovascular: Reports: Dyspnea on Exertion, Edema Gastrointestinal: Reports: No Symptoms Genitourinary: Reports: No Symptoms Musculoskeletal: Reports: Leg Pain, Foot Pain Skin: Reports: No Symptoms Neurological: Reports: Difficulty Walking, Weakness, Gait Disturbance - Patient Data Vitals - Most Recent: Last Vital Signs Temp 95.6 F L 10/24/21 07:02 Pulse 91 10/24/21 10:02 Resp 18 10/24/21 07:02 BP 113/85 10/24/21 10:02 Pulse Ox 90 L 10/24/21 07:02 Weight - Most Recent: 195 lb 8.8 oz Med Orders - Current: Current Medications Discontinued Medications Acetaminophen/Codeine Phosphate (Acetaminophen/Codeine 300-30 Mg Tab) 1 tab PO Q6H PRN PRN Reason: Pain Last Admin: 10/20/21 08:03 Dose: 1 tab Documented by: Aspirin (Aspirin 81 Mg Tab.Ec) 81 mg PO DAILY [facility] Last Admin: 10/24/21 10:03 Dose: 81 mg Documented by: Aspirin (Aspirin 325 Mg Tab.Ec) 325 mg PO ONETIME ONE Stop: 10/20/21 15:31 Last Admin: 10/20/21 15:35 Dose: 325 mg Documented by: Atenolol (Atenolol 25 Mg Tab) 25 mg PO DAILY [facility] Last Admin: 10/24/21 10:02 Dose: 25 mg Documented by: Bacitracin (Bacitracin Oint 28.35 Gm Tube) 0 gm TOP BID [facility] Last Admin: 10/24/21 10:03 Dose: 1 applic Documented by: Ceftriaxone Sodium (Ceftriaxone 1 Gm Advvial) Confirm Administered Dose 2 gm IV .STK-MED ONE Stop: 10/17/21 20:59 Last Admin: 10/17/21 21:06 Dose: Not Given Documented by: Diphenhydramine HCl (Diphenhydramine 50 Mg/Ml Sdv) 25 mg IVPUSH ONETIME ONE Stop: 10/17/21 20:01 Last Admin: 10/17/21 20:39 Dose: 25 mg Documented by: Diphenhydramine HCl (Diphenhydramine 50 Mg/Ml Sdv) 25 mg IVPUSH ONETIME ONE Stop: 10/18/21 08:01 Diphenhydramine HCl (Diphenhydramine 50 Mg/Ml Sdv) 50 mg IV ONETIME ONE Stop: 10/22/21 14:01 Last Admin: 10/22/21 13:44 Dose: 50 mg Documented by: Enoxaparin Sodium (Enoxaparin 30 Mg/0.3 Ml Syringe) 30 mg SUBCUT Q24H [facility] Last Admin: 10/20/21 09:06 Dose: 30 mg Documented by: Enoxaparin Sodium (Enoxaparin 40 Mg/0.4 Ml Syringe) 40 mg SUBCUT Q24H [facility] Last Admin: 10/24/21 10:03 Dose: 40 mg Documented by: Furosemide (Furosemide 20 Mg/2 Ml Vial) 20 mg IVPUSH ONETIME ONE Stop: 10/16/21 21:11 Last Admin: 10/16/21 22:01 Dose: 20 mg Documented by: Furosemide (Furosemide 20 Mg/2 Ml Vial) 20 mg IVPUSH Q6H [facility] Last Admin: 10/18/21 00:02 Dose: 20 mg Documented by: Furosemide (Furosemide 20 Mg Tab) 20 mg PO ONETIME ONE Stop: 10/20/21 16:31 Last Admin: 10/20/21 16:11 Dose: 20 mg Documented by: Furosemide (Furosemide 20 Mg/2 Ml Vial) 20 mg IVPUSH ONETIME ONE Stop: 10/21/21 21:47 Last Admin: 10/21/21 22:28 Dose: 20 mg Documented by: Furosemide (Furosemide 20 Mg Tab) 20 mg PO ONETIME ONE Stop: 10/22/21 08:36 Last Admin: 10/22/21 09:40 Dose: 20 mg Documented by: Furosemide (Furosemide 20 Mg Tab) 20 mg PO ONETIME ONE Stop: 10/22/21 13:01 Last Admin: 10/22/21 13:44 Dose: 20 mg Documented by: Glipizide (Glipizide 5 Mg Tab.Er) 10 mg PO BIDMEALS [facility] Last Admin: 10/24/21 07:23 Dose: 10 mg Documented by: Guaifenesin/Dextromethorphan (Guaifenesin/Dextromethorphan 100-10 Mg/5 Ml Soln 10 Ml Cup) 10 ml PO Q4H PRN PRN Reason: Cough Last Admin: 10/24/21 00:21 Dose: 10 ml Documented by: Hydrochlorothiazide (Hydrochlorothiazide 25 Mg Tab) 25 mg PO DAILY [facility] Last Admin: 10/18/21 11:11 Dose: Not Given Documented by: Hydrochlorothiazide (Hydrochlorothiazide 25 Mg Tab) 25 mg PO DAILY [facility] Last Admin: 10/24/21 10:03 Dose: 25 mg Documented by: Ceftriaxone Sodium 2 gm/ (Sodium Chloride) 50 mls @ 100 mls/hr IV ONETIME ONE Stop: 10/17/21 21:12 Last Admin: 10/17/21 22:01 Dose: Not Given Documented by: Ceftriaxone Sodium 1 gm/ (Sodium Chloride) 50 mls @ 100 mls/hr IV Q24H [facility] Last Admin: 10/23/21 20:46 Dose: 100 mls/hr Documented by: Ceftriaxone Sodium 2 gm/ (Sodium Chloride) 50 mls @ 100 mls/hr IV ONETIME ONE Stop: 10/17/21 22:29 Last Admin: 10/17/21 22:14 Dose: 100 mls/hr Documented by: Sodium Chloride (Normal Saline) 1,000 mls @ 100 mls/hr IV ASDIRECTED [facility] Last Admin: 10/21/21 16:48 Dose: 100 mls/hr Documented by: Sodium Chloride (Normal Saline) 1,000 mls @ 75 mls/hr IV ASDIRECTED [facility] Last Admin: 10/22/21 20:21 Dose: 75 mls/hr Documented by: Sodium Chloride (Normal Saline) 100 mls @ 3 mls/sec IV ASDIRECTED [facility] Stop: 10/22/21 17:16 Last Admin: 10/22/21 17:16 Dose: 3 mls/sec Documented by: Iopamidol (Iopamidol 755 Mg/Ml 100 Ml Bottle) 100 ml IV . DIRECTED [facility] Stop: 10/22/21 17:16 Last Admin: 10/22/21 17:16 Dose: 100 ml Documented by: Lidocaine HCl (Lidocaine 2% Jelly 10 Ml Urojet) 10 ml MUCMEM ONETIME ONE Stop: 10/16/21 21:48 Last Admin: 10/16/21 22:01 Dose: 10 ml Documented by: Methylprednisolone Sodium Succinate (Methylprednisolone Sodium Succinate 40 Mg/1 Ml Sdv) 80 mg IVPUSH ONETIME ONE Stop: 10/17/21 20:01 Last Admin: 10/17/21 20:41 Dose: 80 mg Documented by: Methylprednisolone Sodium Succinate (Methylprednisolone Sodium Succinate 40 Mg/1 Ml Sdv) 80 mg IVPUSH ONETIME ONE Stop: 10/18/21 08:01 Methylprednisolone Sodium Succinate (Methylprednisolone Sodium Succinate 40 Mg/1 Ml Sdv) 40 mg IV Q4H [facility] Stop: 10/22/21 14:01 Last Admin: 10/22/21 13:44 Dose: 40 mg Documented by: Metolazone (Metolazone 2.5 Mg Tab) 5 mg PO ONETIME ONE Stop: 10/16/21 21:49 Last Admin: 10/16/21 22:37 Dose: 5 mg Documented by: Pantoprazole Sodium (Pantoprazole 40 Mg Tab.Cr) 40 mg PO BIDAC [facility] Last Admin: 10/24/21 07:23 Dose: 40 mg Documented by: Potassium Chloride (Potassium Chloride 20 Meq Tab.Er) 20 meq PO DAILY [facility] Last Admin: 10/22/21 08:13 Dose: 20 meq Documented by: Sodium Chloride (Sodium Chloride 0.9% 10 Ml Syringe) 10 ml FLUSH ASDIRECTED PRN PRN Reason: Keep Vein Open Last Admin: 10/22/21 17:16 Dose: 10 ml Documented by: Spironolactone (Spironolactone 25 Mg Tab) 25 mg PO DAILY [facility] Last Admin: 10/18/21 11:11 Dose: Not Given Documented by: Spironolactone (Spironolactone 25 Mg Tab) 25 mg PO DAILY [facility] Last Admin: 10/24/21 10:03 Dose: 25 mg Documented by: Tramadol HCl (Tramadol 50 Mg Tab) 50 mg PO Q6H PRN PRN Reason: Pain Last Admin: 10/17/21 16:27 Dose: 50 mg Documented by: - Exam Urinary Catheter Total Time: 7Days 14Hours General: Alert, Oriented HEENT: Pupils Equal, Pupils Reactive, EOMI, Mucous Membr. Moist/[place] Neck: Supple Lungs: Clear to Auscultation, Normal Respiratory Effort Cardiovascular: Regular Rate, Regular Rhythm GI/Abdominal Exam: Normal Bowel Sounds (Male) Exam: Testicular Tenderness (L), Other (edema) Extremities: Pedal Edema, Leg Pain, Redness Peripheral Pulses: 0: Posterior Tibial (L), Posterior Tibial (R), Dorsalis Pedis (L), Dorsalis Pedis (R), 1+: Radial (L), Radial (R) Skin: Warm, Dry Wound/Incisions: Erythema Improving Psy/Mental Status: Alert - Patient Data Result Diagrams: 10/23/21 09:41 10/24/21 09:44 Sepsis Event Note - Evaluation Sepsis Screening Result: Possible Sepsis Risk - Problem List Review Problem List Initiated/Reviewed/Updated: Yes - Plan Plan:: Assessment/Plan: #1. CHF with fluid retention. Output adequate. Creat is 1.8. K 3.5. Will send for 20 patricia of K daily to his home pharmacy. #2. DMII. Will adjust and treat blood sugars. #3. Arthrosclerosis arteries diffuse. Aarterial flow in the left leg is comprised with severe disease of the left leg of the arteries. I have made a referral to see Dr. Lozada in [facility] a vascular specialist for treatment of the left leg Wednesday10/29/21 at 2 pm. Home today. #4. ASHD: Chronic #5. BKA right leg. #6. History of HTN: #7. History of HLD
--- NOTE | 2021-10-25 20:39 | PCM.DCSUM1 ---
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 He does have problem ambulation because of the DKA of the right leg. We need to save his left leg if at all possible. His blood sugars are borderline control during his hospital stay. Consults: Consultations 10/21/21 12:27 OT Evaluation and Treatment [CONS] Routine Please Evaluate and Treat. OT Reason for Consult: weakness This query below is only for informational purposes and is not editable. Admission Diagnosis/Problem: CHF, Congestive heart failure PT Evaluation and Treatment [CONS] Routine Please Evaluate and Treat. PT Reason for Consult: weakness This query below is only for informational purposes and is not editable. Admission Diagnosis/Problem: CHF, Congestive heart failure Recommended Follow-up Testing/Procedures: To see Dr. Lozada in 5 days for a vascular evaluation. Hospital Course: Fluid was removed but then went into renal failure. We did get they renal function improves enough to do an evaluation of the arterial flow the left leg which is severely compromised. The time of discharge his creatinine was 1.7 and his potassium was low. He'll follow through with this with Dr. Whitt in 5 d ays and have given him potassium supplement. - Patient Instructions Diet: Heart Healthy Diet Activity: As Tolerated - Discharge Plan *PRESCRIPTION DRUG MONITORING PROGRAM REVIEWED*: No *COPY OF PRESCRIPTION DRUG MONITORING REPORT IN PATIENT MAHIN: No Home Medications: Home Meds Aspirin 325 mg PO DAILY 07/02/16 [History] atenoloL [Atenolol] 25 mg PO DAILY 07/02/16 [History] glipiZIDE [Glucotrol XL] 10 mg PO BID 07/02/16 [History] Lactobacillus Rhamnosus GG [Culturelle] 2 cap PO BID cap 07/07/16 [Rx] Furosemide [Lasix] 40 mg PO BID 10/16/21 [History] Pantoprazole Sodium [Protonix] 40 mg PO BID 10/16/21 [History] Spironolact/Hydrochlorothiazid [Spironolactone-Hctz 25-25 Tab] 1 tab PO DAILY 10/16/21 [History] atenoloL [Tenormin] 25 mg PO DAILY tablet 10/24/21 [Rx] Patient Handouts: Fall Prevention in the Home, Adult, [id number], Community- Acquired Pneumonia, Adult, [id number] - Discharge Summary/Plan Comment DC Time >30 min.: Yes Total # of Minutes for Discharge Time: 60 Discharge Summary/Plan Comment: Assessment/Plan: #1. CHF with fluid retention. Output adequate. Creat is 1.8. K 3.5. Will send for 20 patricia of K daily to his home pharmacy. #2. DMII. Will adjust and treat blood sugars. #3. Arthrosclerosis arteries diffuse. Aarterial flow in the left leg is comprised with severe disease of the left leg of the arteries. I have made a referral to see Dr. Lozada in [facility] a vascular specialist for treatment of the left leg Wednesday10/29/21 at 2 pm. Home today. #4. ASHD: Chronic #5. BKA right leg. #6. History of HTN: #7. History of HLD - General Info Functional Status: Reports: Pain Controlled - Review of Systems General: Reports: Weakness HEENT: Reports: No Symptoms Pulmonary: Reports: Shortness of Breath, Cough Cardiovascular: Reports: Dyspnea on Exertion, Orthopnea, Edema Gastrointestinal: Reports: No Symptoms Genitourinary: Reports: No Symptoms Musculoskeletal: Reports: Leg Pain, Foot Pain Neurological: Reports: No Symptoms, Difficulty Walking, Weakness, Gait Disturbance Psychiatric: Reports: No Symptoms - Patient Data Vitals - Most Recent: Last Vital Signs Temp 95.6 F L 10/24/21 07:02 Pulse 91 10/24/21 10:02 Resp 18 10/24/21 07:02 BP 113/85 10/24/21 10:02 Pulse Ox 90 L 10/24/21 07:02 Weight - Most Recent: 195 lb 8.8 oz Med Orders - Current: Current Medications Discontinued Medications Acetaminophen/Codeine Phosphate (Acetaminophen/Codeine 300-30 Mg Tab) 1 tab PO Q6H PRN PRN Reason: Pain Last Admin: 10/20/21 08:03 Dose: 1 tab Documented by: Aspirin (Aspirin 81 Mg Tab.Ec) 81 mg PO DAILY JONAS Last Admin: 10/24/21 10:03 Dose: 81 mg Documented by: Aspirin (Aspirin 325 Mg Tab.Ec) 325 mg PO ONETIME ONE Stop: 10/20/21 15:31 Last Admin: 10/20/21 15:35 Dose: 325 mg Documented by: Atenolol (Atenolol 25 Mg Tab) 25 mg PO DAILY [facility] Last Admin: 10/24/21 10:02 Dose: 25 mg Documented by: Bacitracin (Bacitracin Oint 28.35 Gm Tube) 0 gm TOP BID [facility] Last Admin: 10/24/21 10:03 Dose: 1 applic Documented by: Ceftriaxone Sodium (Ceftriaxone 1 Gm Advvial) Confirm Administered Dose 2 gm IV .STK-MED ONE Stop: 10/17/21 20:59 Last Admin: 10/17/21 21:06 Dose: Not Given Documented by: Diphenhydramine HCl (Diphenhydramine 50 Mg/Ml Sdv) 25 mg IVPUSH ONETIME ONE Stop: 10/17/21 20:01 Last Admin: 10/17/21 20:39 Dose: 25 mg Documented by: Diphenhydramine HCl (Diphenhydramine 50 Mg/Ml Sdv) 25 mg IVPUSH ONETIME ONE Stop: 10/18/21 08:01 Diphenhydramine HCl (Diphenhydramine 50 Mg/Ml Sdv) 50 mg IV ONETIME ONE Stop: 10/22/21 14:01 Last Admin: 10/22/21 13:44 Dose: 50 mg Documented by: Enoxaparin Sodium (Enoxaparin 30 Mg/0.3 Ml Syringe) 30 mg SUBCUT Q24H [facility] Last Admin: 10/20/21 09:06 Dose: 30 mg Documented by: Enoxaparin Sodium (Enoxaparin 40 Mg/0.4 Ml Syringe) 40 mg SUBCUT Q24H [facility] Last Admin: 10/24/21 10:03 Dose: 40 mg Documented by: Furosemide (Furosemide 20 Mg/2 Ml Vial) 20 mg IVPUSH ONETIME ONE Stop: 10/16/21 21:11 Last Admin: 10/16/21 22:01 Dose: 20 mg Documented by: Furosemide (Furosemide 20 Mg/2 Ml Vial) 20 mg IVPUSH Q6H [facility] Last Admin: 10/18/21 00:02 Dose: 20 mg Documented by: Furosemide (Furosemide 20 Mg Tab) 20 mg PO ONETIME ONE Stop: 10/20/21 16:31 Last Admin: 10/20/21 16:11 Dose: 20 mg Documented by: Furosemide (Furosemide 20 Mg/2 Ml Vial) 20 mg IVPUSH ONETIME ONE Stop: 10/21/21 21:47 Last Admin: 10/21/21 22:28 Dose: 20 mg Documented by: Furosemide (Furosemide 20 Mg Tab) 20 mg PO ONETIME ONE Stop: 10/22/21 08:36 Last Admin: 10/22/21 09:40 Dose: 20 mg Documented by: Furosemide (Furosemide 20 Mg Tab) 20 mg PO ONETIME ONE Stop: 10/22/21 13:01 Last Admin: 10/22/21 13:44 Dose: 20 mg Documented by: Glipizide (Glipizide 5 Mg Tab.Er) 10 mg PO BIDMEALS [facility] Last Admin: 10/24/21 07:23 Dose: 10 mg Documented by: Guaifenesin/Dextromethorphan (Guaifenesin/Dextromethorphan 100-10 Mg/5 Ml Soln 10 Ml Cup) 10 ml PO Q4H PRN PRN Reason: Cough Last Admin: 10/24/21 00:21 Dose: 10 ml Documented by: Hydrochlorothiazide (Hydrochlorothiazide 25 Mg Tab) 25 mg PO DAILY [facility] Last Admin: 10/18/21 11:11 Dose: Not Given Documented by: Hydrochlorothiazide (Hydrochlorothiazide 25 Mg Tab) 25 mg PO DAILY [facility] Last Admin: 10/24/21 10:03 Dose: 25 mg Documented by: Ceftriaxone Sodium 2 gm/ (Sodium Chloride) 50 mls @ 100 mls/hr IV ONETIME ONE Stop: 10/17/21 21:12 Last Admin: 10/17/21 22:01 Dose: Not Given Documented by: Ceftriaxone Sodium 1 gm/ (Sodium Chloride) 50 mls @ 100 mls/hr IV Q24H [facility] Last Admin: 10/23/21 20:46 Dose: 100 mls/hr Documented by: Ceftriaxone Sodium 2 gm/ (Sodium Chloride) 50 mls @ 100 mls/hr IV ONETIME ONE Stop: 10/17/21 22:29 Last Admin: 10/17/21 22:14 Dose: 100 mls/hr Documented by: Sodium Chloride (Normal Saline) 1,000 mls @ 100 mls/hr IV ASDIRECTED [facility] Last Admin: 10/21/21 16:48 Dose: 100 mls/hr Documented by: Sodium Chloride (Normal Saline) 1,000 mls @ 75 mls/hr IV ASDIRECTED [facility] Last Admin: 10/22/21 20:21 Dose: 75 mls/hr Documented by: Sodium Chloride (Normal Saline) 100 mls @ 3 mls/sec IV ASDIRECTED JONAS Stop: 10/22/21 17:16 Last Admin: 10/22/21 17:16 Dose: 3 mls/sec Documented by: Iopamidol (Iopamidol 755 Mg/Ml 100 Ml Bottle) 100 ml IV . DIRECTED JONAS Stop: 10/22/21 17:16 Last Admin: 10/22/21 17:16 Dose: 100 ml Documented by: Lidocaine HCl (Lidocaine 2% Jelly 10 Ml Urojet) 10 ml MUCMEM ONETIME ONE Stop: 10/16/21 21:48 Last Admin: 10/16/21 22:01 Dose: 10 ml Documented by: Methylprednisolone Sodium Succinate (Methylprednisolone Sodium Succinate 40 Mg/1 Ml Sdv) 80 mg IVPUSH ONETIME ONE Stop: 10/17/21 20:01 Last Admin: 10/17/21 20:41 Dose: 80 mg Documented by: Methylprednisolone Sodium Succinate (Methylprednisolone Sodium Succinate 40 Mg/1 Ml Sdv) 80 mg IVPUSH ONETIME ONE Stop: 10/18/21 08:01 Methylprednisolone Sodium Succinate (Methylprednisolone Sodium Succinate 40 Mg/1 Ml Sdv) 40 mg IV Q4H [facility] Stop: 10/22/21 14:01 Last Admin: 10/22/21 13:44 Dose: 40 mg Documented by: Metolazone (Metolazone 2.5 Mg Tab) 5 mg PO ONETIME ONE Stop: 10/16/21 21:49 Last Admin: 10/16/21 22:37 Dose: 5 mg Documented by: Pantoprazole Sodium (Pantoprazole 40 Mg Tab.Cr) 40 mg PO BIDAC [facility] Last Admin: 10/24/21 07:23 Dose: 40 mg Documented by: Potassium Chloride (Potassium Chloride 20 Meq Tab.Er) 20 meq PO DAILY [facility] Last Admin: 10/22/21 08:13 Dose: 20 meq Documented by: Sodium Chloride (Sodium Chloride 0.9% 10 Ml Syringe) 10 ml FLUSH ASDIRECTED PRN PRN Reason: Keep Vein Open Last Admin: 10/22/21 17:16 Dose: 10 ml Documented by: Spironolactone (Spironolactone 25 Mg Tab) 25 mg PO DAILY [facility] Last Admin: 10/18/21 11:11 Dose: Not Given Documented by: Spironolactone (Spironolactone 25 Mg Tab) 25 mg PO DAILY [facility] Last Admin: 10/24/21 10:03 Dose: 25 mg Documented by: Tramadol HCl (Tramadol 50 Mg Tab) 50 mg PO Q6H PRN PRN Reason: Pain Last Admin: 10/17/21 16:27 Dose: 50 mg Documented by: - Exam General: Reports: Alert, Oriented HEENT: Reports: Pupils Equal, Pupils Reactive, EOMI, Mucous Membr. Moist/[place]ck: Reports: Supple Lungs: Reports: Clear to Auscultation, Normal Respiratory Effort Cardiovascular: Reports: Regular Rate, Regular Rhythm GI/Abdominal Exam: Soft (Male) Exam: Other (edema) Extremities: Leg Pain, Redness Skin: Reports: Warm, Dry Psy/Mental Status: Reports: Alert, Anxious
== END 2021-10-24 13:00 | disposition home or self-care (01) | DRG 293 ==
LOC: OBSVTOIN 20:12 → JP.2SS 20:12
PROVIDERS: ADMIT Internal Medicine; ATTEND Internal Medicine
DX: I11.0 Hypertensive heart disease with heart failure (principal); I50.9 Heart failure, unspecified; E78.5 Hyperlipidemia, unspecified; I70.202 Unspecified atherosclerosis of native arteries of extremities, left leg; I25.10 Atherosclerotic heart disease of native coronary artery without angina pectoris; Z20.822 Contact with and (suspected) exposure to COVID-19; H91.90 Unspecified hearing loss, unspecified ear; H54.7 Unspecified visual loss; E11.9 Type 2 diabetes mellitus without complications; N19 Unspecified kidney failure; K59.09 Other constipation; Z87.01 Personal history of pneumonia (recurrent); Z79.899 Other long term (current) drug therapy; Z89.511 Acquired absence of right leg below knee; I25.2 Old myocardial infarction; Z79.82 Long term (current) use of aspirin; Z87.891 Personal history of nicotine dependence
CPT/HCPCS: 0241U; 36415; 51702; 71045; 71045-26; 74150; 75635; 80048; 80053; 81001; 82947; 83880; 85025; 93005; 93010; 93926-26; 93926-LT; 97110-GP; 97162-GP; 97165-GO; 97530-GP; 97535-GO; A9270-GY; J0696; J1200; J1650; J1940; J2920; J7030; Q9967